=== PATIENT | female | born 1940 | race Caucasian/White ===

== ENCOUNTER 2018-06-03 19:58 | Inpatient (IN) | payer OTHER, BC ==
--- NOTE | 2018-06-03 20:35 | PDOC ---
History of Present Illness <NicholsViri - Last Filed: 06/04/18 03:34> - History of Present Illness Initial Comments: 06/03/18 20:11 78 yo F with h/o IBS, fibromyalgia, right femoral neck fracture s/p repair, who left flank pain. Patient reports worsening, sharp, shooting, left sided flank pain with radiation to left hip/groin beginning Wednesday (05-30-17), with no identifiable triggers or alleviators. Non exertional. Pain not relieved with duloxetine. Endorses increased severity x 1 day. Also endorses decreased urination x 1 day, and nausea w/out vomiting, now resolved. Normal appeitie, bowel habits. Patient denies N/V, F,C, CP, SOB, urinary complaints, constipation, BPR, hematuria, lightheadedness, weakness, sensory changes. PMHx: as noted above. Denies h/o abdominal surgery ROS: as noted Allergies: NKDA <Chon Eugene - Last Filed: 06/04/18 05:11> - General Chief Complaint: Pain, Acute Stated Complaint: Pain, Acute Time Seen by Provider: 06/03/18 20:05 Past History <SimoneViri - Last Filed: 06/04/18 03:34> - Past Medical History COPD: No Seizures: Yes (PSYCHOMOTOR EPILEPSY) - Suicide/Smoking/Psychosocial Hx Smoking History: Never smoked Hx Alcohol Use: No Substance Use Type: None Hx Substance Use Treatment: No <Chon Eugene - Last Filed: 06/04/18 05:11> - Past Medical History Allergies/Adverse Reactions: Allergies Allergy/AdvReac Type Severity Reaction Status Date / Time No Known Allergies Allergy Verified 05/17/14 18:45 Home Medications: Ambulatory Orders Duloxetine HCl [Cymbalta -] 30 mg PO HS 05/17/14 Phenytoin Na Extended [Dilantin -] 200 mg PO HS 05/17/14 Phenytoin Sodium Extended 100 mg PO AM 05/17/14 Review of Systems - Review of Systems Comments:: 06/03/18 20:12 GENERAL/CONSTITUTIONAL: No fever or chills. No weakness. HEAD, EYES, EARS, NOSE AND THROAT: No change in vision. No ear pain or discharge. No sore throat. CARDIOVASCULAR: No chest pain or shortness of breath RESPIRATORY: No cough, wheezing, or hemoptysis. GASTROINTESTINAL: No nausea, vomiting, diarrhea or constipation. GENITOURINARY: No dysuria, frequency, or change in urination. MUSCULOSKELETAL: No joint or muscle swelling or pain. No neck or back pain. SKIN: No rash NEUROLOGIC: No headache, vertigo, loss of consciousness, or change in strength/ sensation. ENDOCRINE: No increased thirst. No abnormal weight change HEMATOLOGIC/LYMPHATIC: No anemia, easy bleeding, or history of blood clots. ALLERGIC/IMMUNOLOGIC: No hives or skin allergy. <Rich Eugeneson - Last Filed: 06/04/18 05:11> *Physical Exam - Vital Signs Last Vital Signs Temp Pulse Resp BP Pulse Ox 98.5 F 94 H 18 137/77 97 06/03/18 20:07 06/03/18 20:07 06/03/18 20:07 06/03/18 20:07 06/03/18 20:07 <NicholsViri - Last Filed: 06/04/18 03:34> - Vital Signs Last Vital Signs Temp Pulse Resp BP Pulse Ox 98.5 F 94 H 18 137/77 97 06/03/18 20:07 06/03/18 20:07 06/03/18 20:07 06/03/18 20:07 06/03/18 20:07 - Physical Exam Comments: 06/03/18 20:12 GENERAL: Awake, alert, and fully oriented, in no acute distress HEAD: No signs of trauma, normocephalic, atraumatic EYES: PERRLA, EOMI, sclera clear, hearing grossly normal, nares patent, oropharynx clear withoutexudates. Moist mucosa NECK: Normal ROM, supple, no lymphadenopathy, JVD, or masses LUNGS: No distress, speaks full sentences, clear to auscultation bilaterally HEART: Regular rate and rhythm, normal S1 and S2, no murmurs, rubs or gallops, peripheral pulses normal and equal bilaterally. ABDOMEN: + Left flank ttp. Soft, NDS, nontender, normoactive bowel sounds. No guarding, no rebound. No masses EXTREMITIES : Normal inspection, Normal range of motion, no edema. No clubbing or cyanosis. NEUROLOGICAL: Cranial nerves II through XII grossly intact. Normal speech, no focal sensorimotor deficits SKIN: Warm, Dry, normal turgor, no rashes or lesions noted <Chon Eugene - Last Filed: 06/04/18 05:11> Moderate Sedation - Procedure Monitoring Vital Signs: Procedure Monitoring Vital Signs Temperature 98.5 F 06/03/18 20:07 Pulse Rate 94 H 06/03/18 20:07 Respiratory Rate 18 06/03/18 20:07 Blood Pressure 137/77 06/03/18 20:07 O2 Sat by Pulse Oximetry (%) 97 06/03/18 20:07 <Viri Nichols - Last Filed: 06/04/18 03:34> - Procedure Monitoring Vital Signs: Procedure Monitoring Vital Signs Temperature 98.5 F 06/03/18 20:07 Pulse Rate 94 H 06/03/18 20:07 Respiratory Rate 18 06/03/18 20:07 Blood Pressure 137/77 06/03/18 20:07 O2 Sat by Pulse Oximetry (%) 97 06/03/18 20:07 <Chon Eugene - Last Filed: 06/04/18 05:11> ED Treatment Course - LABORATORY CBC & Chemistry Diagram: 06/03/18 20:52 06/03/18 20:52 - ADDITIONAL ORDERS Additional order review: Laboratory Results 06/03/18 06/03/18 23:51 20:52 Sodium 143 Potassium 3.5 Chloride 104 Carbon Dioxide 28 Anion Gap 11 BUN 19 H Creatinine 0.7 Creat Clearance w eGFR > 60 Random Glucose 89 Calcium 8.6 Total Bilirubin 0.4 AST 15 ALT 20 Alkaline Phosphatase 84 Total Protein 6.5 Albumin 3.6 Urine Color Red Urine Appearance Turbid Urine pH 6.0 Ur Specific [place] 1.019 Urine Protein 2+ H Urine Glucose (UA) 1+ H Urine Ketones Trace H Urine Blood 2+ H Urine Nitrite Negative Urine Bilirubin Negative Urine Urobilinogen Negative Ur Leukocyte Esterase Negative Urine WBC (Auto) None Urine RBC (Auto) 3893 Urine Mucus Few 06/03/18 20:52 RBC 3.70 MCV 94.4 MCHC 34.5 RDW 13.9 D MPV 8.8 Neutrophils % 79.2 D Lymphocytes % 12.0 D Monocytes % 7.9 Eosinophils % 0.5 D Basophils % 0.4 - Medications Given in the ED: ED Medications Discontinued Medications Generic Name Dose Route Start Last Admin Trade Name Freq PRN Reason Stop Dose Admin Sodium Chloride 1,000 mls @ 1,000 mls/hr 06/03/18 20:40 06/03/18 20:51 Normal Saline - IV 06/03/18 21:39 1,000 mls/hr ASDIR STA Administration Sodium Chloride 1,000 mls @ 1,000 mls/hr 06/03/18 23:16 06/03/18 23:25 Normal Saline - IV 06/04/18 00:15 1,000 mls/hr ASDIR STA Administration Ketorolac Tromethamine 15 mg 06/03/18 23:11 06/03/18 23:26 Toradol Injection - IVPUSH 06/03/18 23:12 Not Given ONCE ONE Ondansetron HCl 4 mg 06/03/18 20:40 06/03/18 20:51 Zofran Injection IVPUSH 06/03/18 20:41 Not Given ONCE ONE Ondansetron HCl 4 mg 06/04/18 00:05 06/04/18 00:36 Zofran Injection IVPB 06/04/18 00:06 4 mg ONCE ONE Administration <Viri Nichols - Last Filed: 06/04/18 03:34> - LABORATORY CBC & Chemistry Diagram: 06/03/18 20:52 06/03/18 20:52 <Chon Eugene - Last Filed: 06/04/18 05:11> Medical Decision Making - Medical Decision Making 06/04/18 03:34 Patient Name: ALVIN FORTE THIS IS A PRELIMINARY REPORT FROM [facility] DATE OF SERVICE: 2018-06-04 02:18:03 IMAGES: [id number] EXAM: CT abdomen and pelvis without contrast HISTORY: Left flank pain COMPARISON: None. FINDINGS: Lung bases are clear. The heart is borderline enlarged. There is mild left hydronephrosis secondary to a 9 mm proximal ureteral stone, at or just beyond the UPJ. High density in within the left collecting system suspect represent blood. Additional 8 mm stone is noted in the lower pole of the left kidney. Normal unenhanced liver, gallbladder, pancreas, spleen, adrenal glands and right kidney. No bowel obstruction or obvious bowel inflammation. There is no aortic aneurysm. There is no significant retroperitoneal lymphadenopathy. There is minimal ascites of uncertain etiology. Appendix not visualized. The uterus and adnexal structures are normal. Urinary bladder is unremarkable. No discrete pelvic lymphadenopathy is identified.Multiple collateral lumbar vertebral fractures are likely due to osteoporosis. No definite acute fractures. IMPRESSION: Mild to left hydronephrosis secondary to a 9 mm proximal ureteral stone, at or just beyond the UPJ with blood in the proximal ureter and central collecting system.. 8 mm stone in the lower pole the left kidney. Minimal ascites of uncertain cause. Multiple thoracic lumbar vertebral fractures, all likely old and suspected to be due to osteoporosis <Viri Nichols - Last Filed: 06/04/18 03:34> - Medical Decision Making 06/03/18 20:12 78 yo F with h/o IBS, fibromyalgia, right femoral neck fracture s/p repair, who left worsening, sharp, shooting, left sided flank pain with radiation to left hip/groin beginning Wednesday (05-30-17). + Decreased urination. + Left flank ttp. Vitals wnl, AF, A&Ox3. Denies F/C, CP, SOB, abdominal pain, hematuria, BPR., lightheadedness. Will consider nephrolithaisis/obstructive uropathy, pyelonephirtis, cystitis. No evidence AAA, Ao dissection, mesenteric ischemia. Provide analgesia and reassess. Ed Course: 06/03/18 20:13 CBC, CMP, UA, UCx NS, Zofran CBC, CMP: Unremarkable gross hematuria on physical exam Renal U/S: Moderate Left hydronephrosis. 06/04/18 00:05 CT SPIRAL 06/04/18 03:38 9 mm Proximal stone at UPJ, decreased urination 06/04/18 05:03 Pt. endorsed to medicine. Admitted to Dr. Isaacs. <Chon Eugene - Last Filed: 06/04/18 05:11> *DC/Admit/Observation/Transfer - Discharge Dispostion Decision to Admit order: Yes <Viri Nichols - Last Filed: 06/04/18 03:34> - Discharge Dispostion Decision to Admit order: Yes - Attestations Physician Attestion: 06/03/18 20:12 I attest to the information provided in this note. <Chon Eugene - Last Filed: 06/04/18 05:11> Diagnosis at time of Disposition: Pain, Acute left flank pain, Ureteropelvic junction (UPJ) obstruction, left, Ureteral stone, Hydronephrosis - Discharge Dispostion Condition at time of disposition: Guarded - Referrals Referrals: Keegan Rodriguez MD [Primary Care Provider] - - Patient Instructions Printed Discharge Instructions: DI for Flank Pain Additional Instructions: Please return to the emergency department with any new or worsening symptoms or concerns. Please follow up with your primary care physician within 72 hours.
[2018-06-03] MEDS ORDERED: SODIUM CHLORIDE 1,000 ML IV STA ×2 (20:40→23:16)
[2018-06-03] MEDS ORDERED: ONDANSETRON 4 MG/2 ML VIAL IVPUSH ONE (20:40)
[2018-06-03] MEDS ORDERED: ONDANSETRON 4 MG/2 ML VIAL ONE (20:43)
[2018-06-03 20:58] LABS: BASO % 0.4 % (0-2.0); EOS % 0.5 % (0-4.5); HEMOGLOBIN 12.1 GM/dL (10.7-15.3); MCH 32.6 pg (25.7-33.7); MCHC 34.5 g/dl (32.0-36.0); MEAN CELL VOLUME 94.4 fl (80-96); MEAN PLT VOLUME 8.8 fl (7.5-11.1); MONO % 7.9 % (3.8-10.2); NEUT % 79.2 % (42.8-82.8); PLATELET COUNT 145 K/MM3 (134-434); RDW 13.9 % (11.6-15.6); WHITE BLOOD COUNT 9.5 K/mm3 (4.0-10.0)
[2018-06-03 21:21] LABS: ALBUMIN 3.6 g/dl (3.4-5.0); ALK PHOS 84 U/L (45-117); ANION GAP 11 MMOL/L (8-16); BILIRUBIN,TOTAL 0.4 mg/dL (0.2-1); BLOOD UREA NITROGEN 19 mg/dL (7-18); CALCIUM 8.6 mg/dL (8.5-10.1); CHLORIDE 104 mmol/L (98-107); CO2 28 mmol/L (21-32); CREATININE 0.7 mg/dL (0.55-1.3); GLUCOSE,RANDOM 89 mg/dL (74-106); POTASSIUM 3.5 mmol/L (3.5-5.1); SGOT/AST 15 U/L (15-37); SGPT/ALT 20 U/L (13-61); SODIUM 143 mmol/L (136-145); TOT PROT 6.5 g/dl (6.4-8.2)
[2018-06-03] MEDS ORDERED: KETOROLAC TROMETHAMINE 15 MG/ML VIAL IVPUSH ONE (23:11)
--- NOTE | 2018-06-03 23:12 | PDOC ---
Attending Attestation - Resident Resident Name: JabierRichChon - ED Attending Attestation I have performed the following: I have examined & evaluated the patient, The case was reviewed & discussed with the resident, I agree w/resident's findings & plan - [facility] HPI: 06/04/18 00:17 78YOF, with a significant past medical history of IBS, fibromyalgia, right femoral neck fracture (s/p repair), who presents to the emergency department with, 1 week of left flank pain radiating to the groin. Patient notes today she began to have decreased urinary output and nausea without vomiting today, prompting her arrival. She denies recent fevers, chills, headache or dizziness. She denies recent vomit , diarrhea or constipation. She denies recent dysuria or hematuria. She denies recent chest pain or shortness of breath. No sick contacts or travel. No new changes in medications. Allergies: None Past Medical History: IBS, fibromyalgia, right femoral neck fracture (s/p repair ) Social history: Lives with family. No tobacco, ETOH or drug use. Surgical history: right femoral neck repair - Physicial Exam PE: 06/04/18 00:16 NAD, well appearing, frail appearing. PERRL, EOMI, very dry mucus membranes/ smelly breath, nl conjunctiva, anicteric; neck supple. lungs clear, RRR, abdomen soft diffusely tender, Left CVAT. NOVA x4, no focal neuro deficits. No peripheral edema. normal color for ethnicity, WWP. - Medical Decision Making 06/03/18 23:13 DDx abdominal pain: Renal colic, ureteral stone, abdominal mass, bladder ca, RCC. biliary colic, metabolic/electrolyte derangements. GERD, PUD, esophageal spasm, pancreatitis, hepatitis, IBS flare. constipation, colitis, gastroenteritis, UTI, pyelonephritis, hemorrhagic cystitis. hernia, appendicitis, diverticulitis See HPI for details Vital signs reviewed, wnl. Prior notes reviewed, including admissions, discharges and consultations. laboratory results and imaging reviewed, basic labs and lytes wnl, notable for normal Cr, lipase/lfts. UA_grossly bloody, consistent with bedside passage of hematuria; no infection ED course: while in the ED, passed jose hematuria, continues to have flank pain. renal colic/ureteral stone high on differential Bedside renal US with resident mild left hydro on color flow, clots noted in bladder, no ff. normal right kidney on color flow. CT marie to r/o stone/intra abdominal pathology. pain controlled for now, declined analgesia; IVF and zofran given. s/o pending CT scan and results, reeval, suspicious for mass vs obstructed stone. 06/04/18 02:03 06/06/18 12:18 06/06/18 12:19 Procedures - Bedside Ultrasound Remarks: 06/06/18 12:18 POCUS renal study, indication: flank pain, hematuria. views: bilateral kidneys, bladder, transverse and long view. findings: mild left hydronephrosis. blood clots in bladder. interpretation: left hydronephrosis.
[2018-06-03] MEDS ORDERED: KETOROLAC TROMETHAMINE 15 MG/ML VIAL ONE (23:20)
[2018-06-04] MEDS ORDERED: ONDANSETRON 4 MG/2 ML VIAL IVPB ONE (00:05)
[2018-06-04 00:06] LABS: URINE APPEARANCE TURBID; URINE BILIRUBIN NEGATIVE (<2.0 mg/dL); URINE COLOR RED; URINE GLUCOSE (UA) 1+ (NEGATIVE); URINE KETONE TRACE (NEGATIVE); URINE LEUK ESTERASE NEGATIVE (NEGATIVE); URINE NITRITE NEGATIVE (NEGATIVE); URINE PROTEIN 2+ (NEGATIVE); URINE UROBILINOGEN NEGATIVE mg/dL (0.2-1.0)
[2018-06-04] MEDS ORDERED: ONDANSETRON 4 MG/2 ML VIAL ONE (00:32)
[2018-06-04 00:55] LABS: URINE MUCUS FEW
--- NOTE | 2018-06-04 05:23 | PN ---
Teaching Attending Note Name of Resident: Jennifer Hill ATTENDING PHYSICIAN STATEMENT I saw and evaluated the patient. I reviewed the resident's note and discussed the case with the resident. I agree with the resident's findings and plan as documented. SUBJECTIVE: OBJECTIVE: ASSESSMENT AND PLAN: 78 y/o female presented for left sided flank pain, associated with dysuria - patient was noted to have a 9mm stone with hydronephrosis admitted for the management of nephrolithiaisis with hydronephrosis plan: pain management consult urology c/w home medication fluid hydration
[2018-06-04] MEDS ORDERED: SODIUM CHLORIDE 1,000 ML IV SCH (05:30)
--- NOTE | 2018-06-04 05:43 | HP ---
CHIEF COMPLAINT:left flank pain PCP:Dr. Rodriguez HISTORY OF PRESENT ILLNESS: Patient is a 78 year old female with past medical history of IBS and fibromyalgia, presented with a 3-day history of intermitted LLQ and left flank pain. Patient reported pain started 3 days ago at the suprapubic and LLQ area. It was constant, 7/10, radiating to the left flank, and would last a few hours. No medications taken, no alleviating/aggravating factors. This was accompanied by hematuria, but no dysuria or frequency. Last night, patient experienced worse pain in the left flank area accompanied by nausea, and decided to go to the ED. Patient denies fever, chills, headache, vomiting, chest pain, SOB, palpitations, diarrhea. ER course was notable for: (1)spiral CT - 9mm UPJ stone, hydronephrosis, left kidney (2)IV Toradol for pain, IVF (3)UA: red, blood 2+, RBC 3K Recent Travel:denies any recent travel PAST MEDICAL HISTORY: IBS Fibromyalgia Right femoral neck fracture PAST SURGICAL HISTORY: noncontributory Social History: Smoking:denies Alcohol:denies Drugs: denies Family History: Allergies No Known Allergies Allergy (Verified 05/17/14 18:45) HOME MEDICATIONS: Home Medications Medication Instructions Recorded Duloxetine HCl [Cymbalta -] 30 mg PO HS 05/17/14 Phenytoin Na Extended [Dilantin -] 200 mg PO HS 05/17/14 Phenytoin Sodium Extended 100 mg PO AM 05/17/14 REVIEW OF SYSTEMS CONSTITUTIONAL: Absent: fever, chills, diaphoresis, generalized weakness, malaise, loss of appetite, weight change HEENT: Absent: rhinorrhea, nasal congestion, throat pain, throat swelling, difficulty swallowing, mouth swelling, ear pain, eye pain, visual changes CARDIOVASCULAR: Absent: chest pain, syncope, palpitations, irregular heart rate, lightheadedness , peripheral edema RESPIRATORY: Absent: cough, shortness of breath, dyspnea with exertion, orthopnea, wheezing, stridor, hemoptysis GASTROINTESTINAL: Absent: LLQ abdominal pain, abdominal distension, nausea, vomiting, diarrhea, constipation, melena, hematochezia GENITOURINARY: Absent: dysuria, frequency, urgency, hesitancy, hematuria, left flank pain, genital pain MUSCULOSKELETAL: Absent: myalgia, arthralgia, joint swelling, back pain, neck pain SKIN: Absent: rash, itching, pallor HEMATOLOGIC/IMMUNOLOGIC: Absent: easy bleeding, easy bruising, lymphadenopathy, frequent infections ENDOCRINE: Absent: unexplained weight gain, unexplained weight loss, heat intolerance, cold intolerance NEUROLOGIC: Absent: headache, focal weakness or paresthesias, dizziness, unsteady gait, seizure, mental status changes, bladder or bowel incontinence PSYCHIATRIC: Absent: anxiety, depression, suicidal or homicidal ideation, hallucinations. PHYSICAL EXAMINATION Vital Signs - 24 hr 06/03/18 20:07 Temperature 98.5 F Pulse Rate 94 H Respiratory 18 Rate Blood Pressure 137/77 O2 Sat by Pulse 97 Oximetry (%) GENERAL: Awake, alert, and fully oriented, in no acute distress. HEAD: Normal with no signs of trauma. EYES: PERRLA, EOMI, sclera anicteric, conjunctiva clear. EARS, NOSE, THROAT: Nares patent, oropharynx clear without exudates. Moist mucous membranes. LUNGS: Breath sounds equal, clear to auscultation bilaterally. HEART: Regular rate and rhythm, normal S1 and S2 without murmur, rub or gallop. ABDOMEN: Soft, nontender, not distended, normoactive bowel sounds. +Left CVA tenderness UPPER EXTREMITIES: 2+ pulses, warm, well-perfused. No peripheral edema. LOWER EXTREMITIES: 2+ pulses, warm, well-perfused. No peripheral edema. NEUROLOGICAL: Cranial nerves II-XII intact. Normal speech. Gait not observed. PSYCHIATRIC: Cooperative. Good eye contact. Appropriate mood and affect. SKIN: Warm, dry, normal turgor, no rashes or lesions noted. Laboratory Results - last 24 hr 06/03/18 06/03/18 06/03/18 20:52 20:52 23:51 WBC 9.5 RBC 3.70 Hgb 12.1 Hct 35.0 D MCV 94.4 MCH 32.6 MCHC 34.5 RDW 13.9 D Plt Count 145 MPV 8.8 Absolute Neuts (auto) 7.6 Neutrophils % 79.2 D Lymphocytes % 12.0 D Monocytes % 7.9 Eosinophils % 0.5 D Basophils % 0.4 Nucleated RBC % 0 Sodium 143 Potassium 3.5 Chloride 104 Carbon Dioxide 28 Anion Gap 11 BUN 19 H Creatinine 0.7 Creat Clearance w eGFR > 60 Random Glucose 89 Calcium 8.6 Total Bilirubin 0.4 AST 15 ALT 20 Alkaline Phosphatase 84 Total Protein 6.5 Albumin 3.6 Urine Color Red Urine Appearance Turbid Urine pH 6.0 Ur Specific [place] 1.019 Urine Protein 2+ H Urine Glucose (UA) 1+ H Urine Ketones Trace H Urine Blood 2+ H Urine Nitrite Negative Urine Bilirubin Negative Urine Urobilinogen Negative Ur Leukocyte Esterase Negative Urine WBC (Auto) None Urine RBC (Auto) 3893 Urine Mucus Few ASSESSMENT/PLAN: Patient is a 78 year old female with past medical history of IBS and fibromyalgia, presented with a 3-day history of intermitted LLQ and left flank pain. #Left flank pain likely 2/2 nephrolithiasis -spiral CT done -- awaiting final read -UA: grossly red, Blood2+, RBC 3893 -Urology (Dr. Pratt) consulted. -Toradol 15mg PRN for pain #Fibromyalgia -Continue home Dilantin #FEN -IV NS @ 42ml/hr -Electrolytes wnl, routine bmp monitoring -NPO for now #Prophylaxis -SCDs #Disposition -obs Visit type - Emergency Visit Emergency Visit: Yes ED Registration Date: 06/04/18 Care time: The patient presented to the Emergency Department on the above date and was hospitalized for further evaluation of their emergent condition. - New Patient This patient is new to me today: Yes Date on this admission: 06/04/18 - Critical Care Critical Care patient: No
[2018-06-04] MEDS ORDERED: KETOROLAC TROMETHAMINE 15 MG/ML VIAL ONE (06:16)
[2018-06-04] MEDS: KETOROLAC TROMETHAMINE 15 MG/ML VIAL IVPUSH PRN (06:33)
[2018-06-04 06:54] LABS: BASO % 0.6 % (0-2.0); EOS % 1.8 % (0-4.5); HEMATOCRIT 30.7 % (32.4-45.2); HEMOGLOBIN 10.6 GM/dL (10.7-15.3); LYMPH % 18.8 % (8-40); MCH 32.7 pg (25.7-33.7); MCHC 34.3 g/dl (32.0-36.0); MEAN CELL VOLUME 95.3 fl (80-96); MEAN PLT VOLUME 8.4 fl (7.5-11.1); NEUT % 70.8 % (42.8-82.8); PLATELET COUNT 130 K/MM3 (134-434); RBC 3.23 M/mm3 (3.60-5.2); RDW 13.8 % (11.6-15.6); WHITE BLOOD COUNT 6.9 K/mm3 (4.0-10.0)
[2018-06-04 07:42] LABS: ANION GAP 9 MMOL/L (8-16); BLOOD UREA NITROGEN 17 mg/dL (7-18); CALCIUM 7.5 mg/dL (8.5-10.1); CHLORIDE 112 mmol/L (98-107); CO2 25 mmol/L (21-32); CREATININE 0.5 mg/dL (0.55-1.3); GLUCOSE,RANDOM 62 mg/dL (74-106); MAGNESIUM 1.9 mg/dL (1.8-2.4); PHOSPHOROUS 2.5 mg/dL (2.5-4.9); POTASSIUM 4.1 mmol/L (3.5-5.1); SODIUM 147 mmol/L (136-145)
--- NOTE | 2018-06-04 09:56 | CON.GU ---
Consult Consult Specialty:: urology Reason for Consultation:: left proximal ureteral stone - History of Present Illness Chief Complaint: left ureteral stone History of Present Illness: Patient is a 78 year old female with history of left renal colic with nausea. Patient denies gross hematuria, fever, or chills. Patient is in severe colic with pain management improving her symptoms. Patient also does not have an appetite. 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 Gastrointestinal: Yes: GERD Rheumatology: Yes: Fibromyalgia - Alcohol/Substance Use Hx Alcohol Use: No - Smoking History Smoking history: Never smoked Home Medications - Allergies Allergies/Adverse Reactions: Allergies Allergy/AdvReac Type Severity Reaction Status Date / Time No Known Allergies Allergy Verified 05/17/14 18:45 - Home Medications Home Medications: Ambulatory Orders Duloxetine HCl [Cymbalta -] 30 mg PO DAILY 05/17/14 Phenytoin Na Extended [Dilantin -] 100 mg PO BID 06/04/18 Family Disease History - Family Disease History Family Disease History: Heart Disease: Father ([place] in his 60's) Physical Exam- Vital Signs: Vital Signs Temperature 99.1 F 06/04/18 06:25 Pulse Rate 79 06/04/18 06:25 Respiratory Rate 18 06/04/18 06:25 Blood Pressure 141/98 06/04/18 06:25 O2 Sat by Pulse Oximetry (%) 98 06/04/18 06:25 Constitutional: Yes: No Distress, Calm, Mild Distress Eyes: Yes: WNL, Conjunctiva Clear, EOM Intact HENT: Yes: WNL, Atraumatic, Normocephalic Neck: Yes: WNL, Supple, Trachea Midline Cardiovascular: Yes: WNL Respiratory: Yes: WNL Gastrointestinal: Yes: Soft, Hypoactive Bowel Sounds Renal/: Yes: CVA Tenderness - Left Kidneys: Yes: FLank Pain Right Pelvis: Yes: WNL, Bladder Non Palpable External Genitalia: Yes: WNL Labs: CBC, BMP 06/04/18 06:26 06/04/18 06:26 Imaging - Results Cat Scan: Image Reviewed Assessment/Plan imp left proximal ureteral stone with hydro renal colic plan pain management iv hydration will schedule for Wednesday for cystoscopy and left ureteroscopic stone basketing patient is afebril with nl WBC and creatinine; will re-evaluate if situation changes 25 minutes spent with patient
[2018-06-04] MEDS ORDERED: PHENYTOIN NA EXTENDED 100 MG CAPSULE (FP) PO SCH ×3 (10:00→22:00)
[2018-06-04] MEDS: DULoxetine HCL 30 MG CAPSULE.DR (FP) PO SCH (10:47)
[2018-06-04 10:51] VITALS: BMI 16.0
[2018-06-04] MEDS: PHENYTOIN NA EXTENDED 100 MG CAPSULE (FP) PO SCH ×2 (10:56→21:31)
[2018-06-04] MEDS: SODIUM CHLORIDE 1,000 ML IV SCH (15:54)
[2018-06-04] MEDS ORDERED: DULoxetine HCL 30 MG CAPSULE.DR (FP) PO SCH (22:00)
[2018-06-05] MEDS: KETOROLAC TROMETHAMINE 15 MG/ML VIAL IVPUSH PRN (02:00)
[2018-06-05] MEDS ORDERED: INSULIN (NOVOLOG) ASPART 100 UNITS/ML 10ML VIAL ONE (06:15)
[2018-06-05] MEDS ORDERED: PT OWN MED DRAWER 7, Y5N ONE ×2 (09:16)
[2018-06-05] MEDS: PHENYTOIN NA EXTENDED 100 MG CAPSULE (FP) PO SCH ×2 (09:19→21:49)
[2018-06-05] MEDS: DULoxetine HCL 30 MG CAPSULE.DR (FP) PO SCH (09:19)
--- NOTE | 2018-06-05 10:00 | PN ---
Progress Note, Physician History of Present Illness: Patient is a 78 year old female with past medical history of IBS and fibromyalgia, presented with a 3-day history of intermitted LLQ and left flank pain. - Current Medication List Current Medications: Active Medications Duloxetine HCl (Cymbalta -) 30 mg PO DAILY [facility] Last Admin: 06/05/18 09:19 Dose: 30 mg Sodium Chloride (Normal Saline -) 1,000 mls @ 60 mls/hr IV ASDIR [facility] Last Admin: 06/04/18 15:54 Dose: 60 mls/hr Levofloxacin (Levaquin 500 Mg Premixed Ivpb -) 500 mg in 100 mls @ 100 mls/hr IVPB DAILY [facility] Last Admin: 06/05/18 09:19 Dose: 100 mls/hr Ketorolac Tromethamine (Toradol Injection -) 15 mg IVPUSH Q6H PRN PRN Reason: PAIN LEVEL 7 - 10 Stop: 06/09/18 05:08 Last Admin: 06/05/18 02:00 Dose: 15 mg Phenytoin Sodium (Dilantin -) 100 mg PO BID [facility] Last Admin: 06/05/18 09:19 Dose: 100 mg - Objective Vital Signs: Vital Signs Temperature 99.6 F 06/05/18 05:42 Pulse Rate 73 06/05/18 05:42 Respiratory Rate 18 06/05/18 06:00 Blood Pressure 135/79 06/05/18 05:42 O2 Sat by Pulse Oximetry (%) 99 06/05/18 06:00 Constitutional: Yes: Well Nourished, No Distress, Calm Eyes: Yes: WNL, Conjunctiva Clear, EOM Intact HENT: Yes: WNL, Atraumatic, Normocephalic Neck: Yes: WNL, Supple, Trachea Midline Cardiovascular: Yes: WNL, Regular Rate and Rhythm, S1, S2 Respiratory: Yes: WNL, Regular, CTA Bilaterally Gastrointestinal: Yes: WNL, Normal Bowel Sounds Extremities: Yes: WNL Edema: No Neurological: Yes: WNL, Alert, Oriented ...Motor Strength: WNL Psychiatric: Yes: WNL Labs: CBC, BMP 06/04/18 06:26 06/04/18 06:26 Problem List - Problems (1) Acute left flank pain Code(s): R10.9 - UNSPECIFIED ABDOMINAL PAIN (2) Hydronephrosis Code(s): N13.30 - UNSPECIFIED HYDRONEPHROSIS Assessment/Plan #Left flank pain likely 2/2 nephrolithiasis -spiral CT done -- awaiting final read -UA: grossly red, Blood2+, RBC 3893 -Urology (Dr. Pratt) consulted. -Toradol 15mg PRN for pain #Fibromyalgia -Continue home Dilantin #FEN -IV NS @ 42ml/hr -Electrolytes wnl, routine bmp monitoring -NPO for now #Prophylaxis -SCDs #Disposition -obs
[2018-06-05] MEDS: SODIUM CHLORIDE 1,000 ML IV SCH (21:47)
--- NOTE | 2018-06-06 06:49 | RAPID ---
Physical Examination Vital Signs: Vital Signs Temperature 98.4 F 06/06/18 05:46 Pulse Rate 72 06/06/18 05:46 Respiratory Rate 20 06/06/18 05:46 Blood Pressure 143/78 06/06/18 05:46 O2 Sat by Pulse Oximetry (%) 96 06/06/18 02:00 Labs: CBC, BMP 06/04/18 06:26 06/04/18 06:26 Rapid Response - Rapid Response Assessment: rapid response was called at 6:40am- according to nurse patient wasnt acting herself and seemed confused. vitals: BP 159/106 HR 110 BGM 89 SPO2 100 percent exam: gen: NAD LUNGS CTA B/L; no rales, rhonchi or wheezing heart: tachycardic, regular rhythm abdomen: soft; NT ND neuro: AAO X1; CN 2-12 intact plan: EKG CBC BMP metoprolol 25 given
[2018-06-06] MEDS ORDERED: METOPROLOL TARTRATE 25 MG TABLET (FP) PO ONE (06:54)
[2018-06-06 08:01] LABS: BASO % 0.6 % (0-2.0); EOS % 3.9 % (0-4.5); HEMATOCRIT 34.5 % (32.4-45.2); LYMPH % 46.7 % (8-40); MCH 32.6 pg (25.7-33.7); MCHC 34.8 g/dl (32.0-36.0); MEAN CELL VOLUME 93.5 fl (80-96); MEAN PLT VOLUME 8.6 fl (7.5-11.1); MONO % 7.6 % (3.8-10.2); NEUT % 41.2 % (42.8-82.8); PLATELET COUNT 167 K/MM3 (134-434); RBC 3.69 M/mm3 (3.60-5.2); RDW 13.6 % (11.6-15.6); WHITE BLOOD COUNT 6.4 K/mm3 (4.0-10.0)
[2018-06-06 08:27] LABS: ANION GAP 6 MMOL/L (8-16); BLOOD UREA NITROGEN 10 mg/dL (7-18); CALCIUM 8.2 mg/dL (8.5-10.1); CHLORIDE 108 mmol/L (98-107); CO2 28 mmol/L (21-32); CREATININE 0.6 mg/dL (0.55-1.3); GLUCOSE,RANDOM 85 mg/dL (74-106); POTASSIUM 3.6 mmol/L (3.5-5.1); SODIUM 142 mmol/L (136-145)
[2018-06-06] MEDS: DULoxetine HCL 30 MG CAPSULE.DR (FP) PO SCH (09:16)
--- NOTE | 2018-06-06 09:16 | PN ---
Progress Note, Physician Chief Complaint: Comfortable awaiting procedure History of Present Illness: 78 year old female with past medical history of IBS and fibromyalgia, presented with a 3-day history of intermitted LLQ and left flank pain. Patient reported pain started 3 days ago at the suprapubic and LLQ area, spiral CT - 9mm UPJ stone, hydronephrosis, left kidney - Current Medication List Current Medications: Active Medications Duloxetine HCl (Cymbalta -) 30 mg PO DAILY [facility] Last Admin: 06/05/18 09:19 Dose: 30 mg Sodium Chloride (Normal Saline -) 1,000 mls @ 60 mls/hr IV ASDIR [facility] Last Admin: 06/05/18 21:47 Dose: 60 mls/hr Ketorolac Tromethamine (Toradol Injection -) 15 mg IVPUSH Q6H PRN PRN Reason: PAIN LEVEL 7 - 10 Stop: 06/09/18 05:08 Last Admin: 06/05/18 02:00 Dose: 15 mg Levofloxacin (Levaquin -) 500 mg PO DAILY@0600 [facility] Last Admin: 06/06/18 05:36 Dose: 500 mg Phenytoin Sodium (Dilantin -) 100 mg PO BID [facility] Last Admin: 06/05/18 21:49 Dose: 100 mg - Objective Vital Signs: Vital Signs Temperature 98.1 F 06/06/18 08:38 Pulse Rate 82 06/06/18 08:38 Respiratory Rate 20 06/06/18 08:38 Blood Pressure 143/86 06/06/18 08:38 O2 Sat by Pulse Oximetry (%) 96 06/06/18 02:00 Constitutional: Yes: Well Nourished, No Distress Eyes: Yes: Conjunctiva Clear, EOM Intact HENT: Yes: Atraumatic, Normocephalic Neck: Yes: Supple, Trachea Midline. No: Decreased ROM, Lymphadenopathy Cardiovascular: Yes: Regular Rate and Rhythm, S1, S2. No: JVD, Gallop, Murmur Respiratory: Yes: WNL, CTA Bilaterally Gastrointestinal: Yes: Soft. No: Normal Bowel Sounds Genitourinary: No: Bladder Distention, CVA Tenderness - Left, CVA Tenderness - Right Extremities: No: Amputation, Calf Tenderness Edema: No Peripheral Pulses: Left Doralis Pedis: 1+, Right Dorsalis Pedis: 1+ Neurological: Yes: Alert, Oriented ...Motor Strength: LUE, LLE, RUE, RLE Labs: CBC, BMP 06/06/18 07:00 06/06/18 06:30 Problem List - Problems (1) Acute left flank pain Assessment/Plan: Due to renal calculi awaiting cystoscopy F/U gU recommendations Code(s): R10.9 - UNSPECIFIED ABDOMINAL PAIN (2) Ureteropelvic junction (UPJ) obstruction, left Assessment/Plan: Pain is well controlled no fever elevated TWBC cont current management Code(s): N13.5 - CROSSING VESSEL AND STRICTURE OF URETER W/O HYDRONEPHROSIS (3) Epilepsy Assessment/Plan: Cont Dilantin F/U level in am Code(s): G40.909 - EPILEPSY, UNSP, NOT INTRACTABLE, WITHOUT STATUS EPILEPTICUS
[2018-06-06] MEDS: PHENYTOIN NA EXTENDED 100 MG CAPSULE (FP) PO SCH ×2 (09:17→23:19)
--- NOTE | 2018-06-06 11:07 | EKG ---
Test Reason : Blood Pressure : / mmHG Vent. Rate : 079 BPM Atrial Rate : 079 BPM P-R Int : 158 ms QRS Dur : 082 ms QT Int : 388 ms P-R-T Axes : 044 021 031 degrees QTc Int : 444 ms NORMAL SINUS RHYTHM NORMAL ECG WHEN COMPARED WITH ECG OF 17-MAY-2014 18:57, NO SIGNIFICANT CHANGE WAS FOUND Confirmed by XIMENA JADE MD ([id number]) on 06/06/2018 11:07:16 AM Referred By: Jaime WU Confirmed By:XIMENA JADE MD
[2018-06-06] MEDS: LACTATED RINGERS SOLUTION 1,000 ML IV SCH ×2 (13:21→14:27)
[2018-06-06] MEDS ORDERED: ONDANSETRON 4 MG/2 ML VIAL IVPB PRN (14:31)
[2018-06-06] MEDS ORDERED: MIDAZOLAM HCL 2 MG/2 ML SINGLE DOSE VIAL ONE (15:42)
[2018-06-06] MEDS: SODIUM CHLORIDE 1,000 ML IV SCH ×3 (16:11→18:07)
[2018-06-06] MEDS ORDERED: ePHEDrine SULFATE 50 MG/1 ML AMPULE ONE (16:18)
--- NOTE | 2018-06-06 16:55 | OP ---
Operative Note - Note: Operative Date: 06/06/18 Pre-Operative Diagnosis: left ureteral stone with hydronephrosis/colic Operation: cystoscopy/left retrograde pyelogram/left uretersoscopic stone manipulation and stent placement Findings: 7-8mm left upper ureteral stone with high grade proximal hydroureteronephrosis Post-Operative Diagnosis: Same as Pre-op Surgeon: Miguel Pratt Anesthesia: General Drains & Tubes with Location: left 11/05 ureteral stent
[2018-06-06] MEDS ORDERED: KETOROLAC TROMETHAMINE 15 MG/ML VIAL IVPUSH PRN (17:05)
[2018-06-06] MEDS: ACETAMINOPHEN 1000 MG/100 ML VIAL (NON FORMULARY) IVPB ONE (17:05)
[2018-06-06] MEDS ORDERED: LACTATED RINGERS SOLUTION 1,000 ML IV SCH (17:05)
--- NOTE | 2018-06-06 17:43 | OP ---
DATE OF OPERATION: 06/06/2018 PREOPERATIVE DIAGNOSIS: Left ureteral stone with hydronephrosis and renal colic. POSTOPERATIVE DIAGNOSIS: Proximal 7- to 8-mm left upper ureteral stone with high-grade proximal hydroureteronephrosis. PROCEDURE: Cystoscopy, left retrograde pyelogram, left ureteroscopic stone manipulation, stent placement. ATTENDING SURGEON: Javid Pratt MD ANESTHESIA: General. OPERATION: As follows, the patient was brought into the operating room and placed in a supine position on the operating room table. Antibiotics and anesthesia were administered. The patient was then placed in the dorsal lithotomy position and prepped and draped in the usual sterile manner. A retrograde pyelogram was performed which showed a filling defect in the left upper ureter. This filling defect was roughly 3 cm below the ureteropelvic junction. A wire was passed with mild difficulty. Ureteroscopy was then performed. A second wire was passed due to the significant narrowing of the ureter at this level. The stone was then noted and was disimpacted. With the stone traveling proximally into the kidney, a hematuric urine started draining. This led this surgeon to lose a significant amount of his optical field. It was decided to leave the patient with a stent in order to safely perform a second procedure at a later date. The ureteroscope was removed, and utilizing the Seldinger technique, a 6-Dutch 22-cm stent was placed. There were no complications noted. The patient tolerated the procedure very well. The disposition of the patient was to the recovery room. JAVID TORRES M.D. [id number]
[2018-06-06] MEDS: ONDANSETRON 4 MG/2 ML VIAL IVPB PRN (18:07)
[2018-06-07 08:10] LABS: BASO % 0.5 % (0-2.0); EOS % 2.3 % (0-4.5); HEMATOCRIT 31.6 % (32.4-45.2); HEMOGLOBIN 10.8 GM/dL (10.7-15.3); LYMPH % 27.4 % (8-40); MCH 32.2 pg (25.7-33.7); MCHC 34.4 g/dl (32.0-36.0); MEAN CELL VOLUME 93.8 fl (80-96); MEAN PLT VOLUME 8.5 fl (7.5-11.1); MONO % 8.2 % (3.8-10.2); NEUT % 61.6 % (42.8-82.8); PLATELET COUNT 164 K/MM3 (134-434); RBC 3.36 M/mm3 (3.60-5.2); RDW 13.3 % (11.6-15.6); WHITE BLOOD COUNT 5.6 K/mm3 (4.0-10.0)
[2018-06-07 08:18] LABS: ANION GAP 9 MMOL/L (8-16); BLOOD UREA NITROGEN 8 mg/dL (7-18); CHLORIDE 105 mmol/L (98-107); CO2 28 mmol/L (21-32); CREATININE 0.7 mg/dL (0.55-1.3); GLUCOSE,RANDOM 77 mg/dL (74-106); POTASSIUM 3.4 mmol/L (3.5-5.1); SODIUM 142 mmol/L (136-145)
[2018-06-07] MEDS ORDERED: POTASSIUM CHLORIDE TABS 20 MEQ TABLET.ER (FP) PO ONE (08:45)
[2018-06-07] MEDS: PHENYTOIN NA EXTENDED 100 MG CAPSULE (FP) PO SCH ×2 (09:06→22:47)
[2018-06-07] MEDS: DULoxetine HCL 30 MG CAPSULE.DR (FP) PO SCH (09:06)
[2018-06-07] MEDS: SODIUM CHLORIDE 1,000 ML IV SCH (10:18)
[2018-06-07] MEDS ORDERED: PHENYTOIN SODIUM 100 MG/2 ML VIAL IVPB ONE (10:35)
[2018-06-07] MEDS: DEXTROSE 5%-WATER - 1,000 ML IV SCH (13:33)
--- NOTE | 2018-06-07 15:26 | PN ---
Teaching Attending Note Name of Resident: Jennifer Hill ATTENDING PHYSICIAN STATEMENT I saw and evaluated the patient. I reviewed the resident's note and discussed the case with the resident. I agree with the resident's findings and plan as documented. 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 No: Decreased ROM, Lymphadenopathy Cardiovascular: Yes: Regular Rate and Rhythm, S1, S2. No: JVD, Gallop, Murmur Respiratory: Yes: WNL, CTA Bilaterally Gastrointestinal: Yes: Soft. No: Normal Bowel Sounds Genitourinary: No: Bladder Distention, CVA Tenderness - Left, CVA Tenderness - Right Extremities: No: Amputation, Calf Tenderness Edema: No Peripheral Pulses: Left Doralis Pedis: 1+, Right Dorsalis Pedis: 1+ Neurological: AOX3 non focal Labs: Dilantin 3.2 ASSESSMENT AND PLAN:78 yrs old with Fibromyelgia and psychmotor epilepsy admitted with Left Renal calculi with obstructive uropathy s/p Stent placement. Plan; Left Renal Locic; underwent cystoscopy and stent placement F/U recommondations. Epilepsy; Sub therpeutic Dilantin, load Dilatin F/U Dilantin level observe for breakthrough seizures D5 based hydration once patient is fsating. Patient looks confused F/U Neurology recommondation and CT head. Problem List - Problems (1) Acute left flank pain Assessment/Plan: Due to renal calculi awaiting cystoscopy F/U gU recommendations Code(s): R10.9 - UNSPECIFIED ABDOMINAL PAIN (2) Ureteropelvic junction (UPJ) obstruction, left Assessment/Plan: Pain is well controlled no fever elevated TWBC cont current management Code(s): N13.5 - CROSSING VESSEL AND STRICTURE OF URETER W/O HYDRONEPHROSIS (3) Epilepsy Assessment/Plan: Sub therapeutic dilantin, loaded f/u dilantin level. Code(s): G40.909 - EPILEPSY, UNSP, NOT INTRACTABLE, WITHOUT STATUS EPILEPTICUS
--- NOTE | 2018-06-07 15:38 | PN ---
Physical Exam: SUBJECTIVE: Patient seen and examined at bedside this morning. No acute events overnight. Patient has no new complaints. In the afternoon, paged by nurse, reporting patient seems to be confused and reporting dizziness. Upon seeing the patient, she seems to be aware of her surroundings, oriented x3 and reporting of dizziness and nausea after sitting on a chair and transferred to bed. OBJECTIVE: Vital Signs Period Temp Pulse Resp BP Sys/Patel Pulse Ox Last 24 Hr 97.8 F-98.9 F 87-120 16-20 120-155/53-98 97-99 GENERAL: Awake, alert, and fully oriented, in no acute distress. HEAD: Normal with no signs of trauma. EYES: PERRLA, EOMI, sclera anicteric, conjunctiva clear. EARS, NOSE, THROAT: Nares patent, oropharynx clear without exudates. Moist mucous membranes. LUNGS: Breath sounds equal, clear to auscultation bilaterally. HEART: Regular rate and rhythm, normal S1 and S2 without murmur, rub or gallop. ABDOMEN: Soft, nontender, not distended, normoactive bowel sounds. UPPER EXTREMITIES: 2+ pulses, warm, well-perfused. No peripheral edema. LOWER EXTREMITIES: 2+ pulses, warm, well-perfused. No peripheral edema. NEUROLOGICAL: Cranial nerves II-XII intact. Normal speech. Gait not observed. PSYCHIATRIC: Cooperative. Good eye contact. Appropriate mood and affect. SKIN: Warm, dry, normal turgor, no rashes or lesions noted. Laboratory Results - last 24 hr 06/07/18 06/07/18 06:30 06:30 WBC 5.6 RBC 3.36 L Hgb 10.8 Hct 31.6 L MCV 93.8 MCH 32.2 MCHC 34.4 RDW 13.3 Plt Count 164 MPV 8.5 Absolute Neuts (auto) 3.4 Neutrophils % 61.6 D Lymphocytes % 27.4 D Monocytes % 8.2 Eosinophils % 2.3 Basophils % 0.5 Nucleated RBC % 0 Sodium 142 Potassium 3.4 L Chloride 105 Carbon Dioxide 28 Anion Gap 9 BUN 8 Creatinine 0.7 Creat Clearance w eGFR > 60 Random Glucose 77 Calcium 8.0 L Active Medications Generic Name Dose Route Start Last Admin Trade Name Freq PRN Reason Stop Dose Admin Duloxetine HCl 30 mg 06/07/18 10:00 01/22/19 09:06 Cymbalta - PO 30 mg DAILY [facility]ISON Administration Dextrose 1,000 mls @ 60 mls/hr 06/07/18 13:15 06/07/18 13:33 D5w - IV 60 mls/hr ASDIR [facility] Administration Levofloxacin 500 mg 06/07/18 06:00 06/07/18 06:04 Levaquin - PO 500 mg DAILY@0600 [facility] Administration Ondansetron HCl 4 mg 06/06/18 17:05 06/06/18 18:07 Zofran Injection IVPB 4 mg Q6H PRN Administration NAUSEA AND/OR VOMITING Phenytoin Sodium 100 mg 06/06/18 22:00 06/07/18 09:06 Dilantin - PO 100 mg BID [facility]ISON Administration -Spiral CT: 7mm proximal left ureteral calculus with mild hydronephrosis. There is hyperdense fluid within the collecting system suspicious for blood. Additional 6mm nonobstructing calculus within the lower pole of the left kidney. Trace ascites. -Head CT: No significant interval change or acute intracranial pathology. Previously noted dense calcification along medial margin of the left temporal lobe is again seen measuring 1.3cm with an irregular contour likely representing a calcified/ossified meningioma. ASSESSMENT/PLAN: Patient is a 78 year old female with past medical history of IBS and fibromyalgia, presented with a 3-day history of intermitted LLQ and left flank pain. #Left flank pain likely 2/2 nephrolithiasis -spiral CT: 7mm proximal left ureteral calculus with mild hydronephrosis. There is hyperdense fluid within the collecting system suspicious for blood. Additional 6mm nonobstructing calculus within the lower pole of the left kidney. Trace ascites. -UA: grossly red, Blood2+, RBC 3893 -Urology (Dr. Pratt) consulted. -POD 1: Cystoscopy, left retrograde pyelogram, left ureteroscopic stone manipulation, stent placement. -pain management -Levaquin 500mg daily Day 2 -EKG #Dizziness/confusion, rule out seizure -Dilantin level low today. -Patient reported having dilantin level high a few months ago, dose was decreased and Cymbalta was added. -Added Dilantin 500mg IV once today. -Will repeat Dilantin level -Continue home Dilantin 100mg BID -Head CT: No significant interval change or acute intracranial pathology identified. -Neurology (Dr. Navarro) consulted. #Fibromyalgia -Continue home Dilantin #FEN -IV D5W @ 60ml/hr -Electrolytes wnl, routine bmp monitoring -Regular diet #Prophylaxis -SCDs #Disposition -med-surg Visit type - Emergency Visit Emergency Visit: Yes ED Registration Date: 06/04/18 Care time: The patient presented to the Emergency Department on the above date and was hospitalized for further evaluation of their emergent condition. - New Patient This patient is new to me today: No - Critical Care Critical Care patient: No
[2018-06-07] MEDS: ONDANSETRON 4 MG/2 ML VIAL IVPB PRN (16:03)
[2018-06-07] MEDS ORDERED: ACETAMINOPHEN 1000 MG/100 ML VIAL (NON FORMULARY) IVPB ONE (19:45)
[2018-06-07] MEDS: ACETAMINOPHEN 1000 MG/100 ML VIAL (NON FORMULARY) IVPB ONE (20:38)
[2018-06-08] MEDS: DEXTROSE 5%-WATER - 1,000 ML IV SCH ×2 (06:01→21:38)
[2018-06-08 07:05] LABS: HEMATOCRIT 31.9 % (32.4-45.2); HEMOGLOBIN 10.9 GM/dL (10.7-15.3); MCH 32.1 pg (25.7-33.7); MCHC 34.1 g/dl (32.0-36.0); MEAN CELL VOLUME 94.1 fl (80-96); MEAN PLT VOLUME 8.4 fl (7.5-11.1); PLATELET COUNT 173 K/MM3 (134-434); RBC 3.39 M/mm3 (3.60-5.2); RDW 13.8 % (11.6-15.6); WHITE BLOOD COUNT 5.6 K/mm3 (4.0-10.0)
[2018-06-08 07:39] LABS: ANION GAP 6 MMOL/L (8-16); BLOOD UREA NITROGEN 8 mg/dL (7-18); CALCIUM 8.2 mg/dL (8.5-10.1); CHLORIDE 105 mmol/L (98-107); CO2 31 mmol/L (21-32); CREATININE 0.7 mg/dL (0.55-1.3); GLUCOSE,RANDOM 79 mg/dL (74-106); PHOSPHOROUS 3.4 mg/dL (2.5-4.9); POTASSIUM 3.5 mmol/L (3.5-5.1); SODIUM 143 mmol/L (136-145)
[2018-06-08] MEDS ORDERED: PT OWN MED DRAWER 7, Y5N ONE (09:37)
[2018-06-08] MEDS: DULoxetine HCL 30 MG CAPSULE.DR (FP) PO SCH (09:40)
[2018-06-08] MEDS: PHENYTOIN NA EXTENDED 100 MG CAPSULE (FP) PO SCH ×2 (09:40→21:38)
--- NOTE | 2018-06-08 16:18 | PN ---
Teaching Attending Note Name of Resident: Jennifer Hill ATTENDING PHYSICIAN STATEMENT I saw and evaluated the patient. I reviewed the resident's note and discussed the case with the resident. I agree with the resident's findings and plan as documented. SUBJECTIVE: no abd pain, no flank pain. dilantin was TID and was changed to BID in one of the ER visits in [place]. she has break through seizures as out pt . she did not see a neurologist in a long time OBJECTIVE: NAD , anxious looking CV: RRR Lungs: CTAB Ext : no edema , scratch dominguez and scabs on legs and arms Abd: soft, NT, ND , NL BS ASSESSMENT AND PLAN: 78 y/o lady with h/o fibromyalgia and non convulsive seizures who presented with flank pain and was found to have L ureteral stone with hydronephrosis 1- Obstructing L ureteral stone with hydro: s/p stenting . - out pt f/u with uro - abx per urology despite neg urine cx . d/w Dr. Reeder by team 2- Seizure disorder , had non convulsive seizure yesterday. - increase dilantin to TID . - need level on Wednesday - will have neuro review her meds 3- dispo : need rehab .
--- NOTE | 2018-06-08 17:35 | PN ---
Physical Exam: SUBJECTIVE: Patient seen and examined at bedside this morning. No acute events overnight. Patient has no new complaints. OBJECTIVE: Vital Signs Period Temp Pulse Resp BP Sys/Patel Pulse Ox Last 24 Hr 98.3 F-99.0 F 78-101 18-20 115-145/64-86 97-98 GENERAL: Awake, alert, and fully oriented, in no acute distress. HEAD: Normal with no signs of trauma. EYES: PERRLA, EOMI, sclera anicteric, conjunctiva clear. EARS, NOSE, THROAT: Nares patent, oropharynx clear without exudates. Moist mucous membranes. LUNGS: Breath sounds equal, clear to auscultation bilaterally. HEART: Regular rate and rhythm, normal S1 and S2 without murmur, rub or gallop. ABDOMEN: Soft, nontender, not distended, normoactive bowel sounds. UPPER EXTREMITIES: 2+ pulses, warm, well-perfused. No peripheral edema. LOWER EXTREMITIES: 2+ pulses, warm, well-perfused. No peripheral edema. NEUROLOGICAL: Cranial nerves II-XII intact. Normal speech. Gait not observed. PSYCHIATRIC: Cooperative. Good eye contact. Appropriate mood and affect. SKIN: Warm, dry, normal turgor, no rashes or lesions noted. Laboratory Results - last 24 hr 06/07/18 06/08/18 06/08/18 20:03 06:00 06:00 WBC 5.6 RBC 3.39 L Hgb 10.9 Hct 31.9 L MCV 94.1 MCH 32.1 MCHC 34.1 RDW 13.8 Plt Count 173 MPV 8.4 Sodium 143 Potassium 3.5 Chloride 105 Carbon Dioxide 31 Anion Gap 6 L BUN 8 Creatinine 0.7 Creat Clearance w eGFR > 60 Random Glucose 79 Calcium 8.2 L Phosphorus 3.4 Magnesium 2.0 Phenytoin 16.9 Active Medications Generic Name Dose Route Start Last Admin Trade Name Freq PRN Reason Stop Dose Admin Duloxetine HCl 30 mg 06/07/18 10:00 06/08/18 09:40 Cymbalta - PO 30 mg DAILY [facility] Administration Dextrose 1,000 mls @ 60 mls/hr 06/07/18 13:15 06/08/18 06:01 D5w - IV 60 mls/hr ASDIR [facility] Administration Nitrofurantoin Macrocrystals 50 mg 06/09/18 10:00 Macrodantin - PO QID ON LICENSE OF [facility] Ondansetron HCl 4 mg 06/06/18 17:05 06/07/18 16:03 Zofran Injection IVPB 4 mg Q6H PRN Administration NAUSEA AND/OR VOMITING Phenytoin Sodium 100 mg 06/08/18 22:00 Dilantin - PO TID ON LICENSE OF [facility] -Spiral CT: 7mm proximal left ureteral calculus with mild hydronephrosis. There is hyperdense fluid within the collecting system suspicious for blood. Additional 6mm nonobstructing calculus within the lower pole of the left kidney. Trace ascites. -Head CT: No significant interval change or acute intracranial pathology. Previously noted dense calcification along medial margin of the left temporal lobe is again seen measuring 1.3cm with an irregular contour likely representing a calcified/ossified meningioma. ASSESSMENT/PLAN: Patient is a 78 year old female with past medical history of IBS and fibromyalgia, presented with a 3-day history of intermitted LLQ and left flank pain. #Left flank pain likely 2/2 nephrolithiasis -spiral CT: 7mm proximal left ureteral calculus with mild hydronephrosis. There is hyperdense fluid within the collecting system suspicious for blood. Additional 6mm nonobstructing calculus within the lower pole of the left kidney. Trace ascites. -UA: grossly red, Blood2+, RBC 3893 -Urology (Dr. Pratt) consulted. -POD 2: Cystoscopy, left retrograde pyelogram, left ureteroscopic stone manipulation, stent placement. -pain management -Urine culture negative -Levaquin 500mg x3 days completed -Will start Macrobid 100mg BID starting tomorrow as per urology #Dizziness/confusion, rule out seizure -Dilantin level wnl today s/p Dilantin 500mg given yesterday -PCP (Dr. Rodriguez) contacted. Patient has not followed up since 2 years ago. -Her Dilantin dose 100mg TID was decreased about 2 months ago to BID when she was admitted at a hospital in [place] and was noted to have a high dilantin level. Since then, patient has not followed up with Dr. Rodriguez or neurology to have the levels checked. -Will increase Dilantin to 100mg TID -Head CT: No significant interval change or acute intracranial pathology identified. -Neurology consulted. #Fibromyalgia -Continue home Dilantin #FEN -IV D5W @ 60ml/hr -Electrolytes wnl, routine bmp monitoring -Regular diet #Prophylaxis -SCDs #Disposition -med-surg Visit type - Emergency Visit Emergency Visit: Yes ED Registration Date: 06/04/18 Care time: The patient presented to the Emergency Department on the above date and was hospitalized for further evaluation of their emergent condition. - New Patient This patient is new to me today: No - Critical Care Critical Care patient: No
--- NOTE | 2018-06-08 20:36 | CONSULT ---
Consult - text type - Consultation Consultation Note: NEUROLOGY CONSULTATION is greatly appreciated: Events reviewed and patient examined with her brother at the bedside who helps with the history. This 78 yo RH s woman lives alone. 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 Now admitted with flank pain due to nephrolithiasis. She can be warned by a "funny feeling in her head" which is stereotyped. She then "stares" and becomes unresponsive without loss of postural tone. This lasts a few seconds and can include automatisms, usually tapping her left thigh. This is followed by a brief period of confusion x few seconds. She was told these are "Psychomotor Seizures." On Dilantin for 50 years usually at 300 mg/day. A few months ago dose was reduced to 100 mg BID at [facility]. Pt acknowledges increased seizures including those in the hospital, described in the chart. Dilantin level was 3.2 ug% before reloading and 16.8 ug% after. H/O "Fibromyalgia" with pain resolved on Duloxetine 30 mg/d. "Few years" of progressive imbalance and gait dysfunction. S/O falls with B/L Hip fx requiring ORIF 4 and 3 years ago. Has walked with walker since that time. However, this year she has become homebound and spends most of her time in bed. Brother shops or grocer delivers. HARINDER: Thin and frail. No bruits. No head injury. NEURO: MS/Speech: normal CN II-XII normal without Nystagmus. Motor: Fine sustention tremor. No cogwheeling. Normal ANDREA's. Normal strength. Reduced KJ's and absent AJ's. Toes downgoing. Coord: No FTN dystaxia. Sensory: NO VIBRATION BELOW THE KNEES. Romberg +++ Gait: Extremely unsteady, variable, unsafe. Requires assistance. IMP: 1. Seizure Disorder (Complex Partial Seizures) 2. Severe Peripheral Neuropathy probably due to chronic Dilantin Rx. SUGGEST: Continue Dilantin 300 mg qd (can give in one dose) Repeat Phenytoin level in 2 weeks. Also check B12, Folic acid, ESR, CRP. Physiatry consultation, EMG/NCS, and PT for gait training with walker. director of cloud services, Home safety check, Home health aide or SNF placement Neuro f/u as out patient. We can change Dilantin to a newer AED if patient agrees. Thank you very much, Jose R Navarro MD
[2018-06-09] MEDS: PHENYTOIN NA EXTENDED 100 MG CAPSULE (FP) PO SCH (05:51)
[2018-06-09] MEDS ORDERED: PT OWN MED DRAWER 7, Y5N ONE (08:33)
[2018-06-09] MEDS: DULoxetine HCL 30 MG CAPSULE.DR (FP) PO SCH (09:06)
[2018-06-09 09:12] VITALS: BP 115/70; PULSE 96; TEMP 98.3
[2018-06-09] MEDS ORDERED: NITROFURANTOIN MACROCRYSTAL 50 MG CAPSULE (FP) PO SCH (10:00)
--- NOTE | 2018-06-09 11:26 | PN ---
Progress Note (short form) - Note Progress Note: Contacted by Dr. Navarro yesterday evening. He informed me the patient is known to him from the office. In agreement that he will be managing care, defer to him on patient care. Thank you for your consultation request.
--- NOTE | 2018-06-09 14:01 | PN ---
Teaching Attending Note Name of Resident: Jennifer Hill ATTENDING PHYSICIAN STATEMENT I saw and evaluated the patient. I reviewed the resident's note and discussed the case with the resident. I agree with the resident's findings and plan as documented. SUBJECTIVE: feels better . No abd pain, no weakness. no SOB . no events last night OBJECTIVE: NAD CV: RRR Lungs: CTAB Ext : no edema, scratch dominguez and scabs on legs and arms ASSESSMENT AND PLAN: 78 y/o lady with h/o fibromyalgia and non convulsive seizures who presented with flank pain and was found to have L ureteral stone with hydronephrosis 1- Obstructing L ureteral stone with hydro: s/p stenting . - out pt f/u with uro - Abx d/w Dr. Pratt yesterday, recommended to treat with Macrobid fro total of 7 days 2- Seizure disorder with event in house - Cont dilantin 100 mg TID . she prefer to use TID rather than 300 mg once daily - dilantin level as out pt -furhtamrit neurological w/u as out pt . f/u with neuro for EMG/NCS 3- Moderate malnutrition Dispo : Dc to rehab
--- NOTE | 2018-06-09 17:10 | DS ---
Physical Exam: SUBJECTIVE: Patient seen and examined at bedside this morning. No acute events overnight. Patient is a bit anxious today after learning that she is going to be discharged to [facility]. Explained to patient in detail everything that was done to her here in the hospital, medications she will continue to take, and her follow-up with uro. Patient understood and was more at ease afterwards. OBJECTIVE: Vital Signs Period Temp Pulse Resp BP Sys/Patel Pulse Ox Last 24 Hr 98.2 F-98.6 F 72-96 18-18 115-135/67-80 97-97 PHYSICAL EXAM GENERAL: Awake, alert, and fully oriented, in no acute distress. HEAD: Normal with no signs of trauma. EYES: PERRLA, EOMI, sclera anicteric, conjunctiva clear. EARS, NOSE, THROAT: Nares patent, oropharynx clear without exudates. Moist mucous membranes. LUNGS: Breath sounds equal, clear to auscultation bilaterally. HEART: Regular rate and rhythm, normal S1 and S2 without murmur, rub or gallop. ABDOMEN: Soft, nontender, not distended, normoactive bowel sounds. UPPER EXTREMITIES: 2+ pulses, warm, well-perfused. No peripheral edema. LOWER EXTREMITIES: 2+ pulses, warm, well-perfused. No peripheral edema. NEUROLOGICAL: Cranial nerves II-XII intact. Normal speech. Gait not observed. PSYCHIATRIC: Cooperative. Good eye contact. Appropriate mood and affect. SKIN: Warm, dry, normal turgor, no rashes or lesions noted. LABS Laboratory Results - last 24 hr 06/08/18 06/09/18 06:00 08:20 Sodium 143 Potassium 3.5 Chloride 105 Carbon Dioxide 31 Anion Gap 6 L BUN 8 Creatinine 0.7 Creat Clearance w eGFR > 60 Random Glucose 79 Calcium 8.2 L Phosphorus 3.4 Magnesium 2.0 Vitamin B12 1090 H -Spiral CT: 7mm proximal left ureteral calculus with mild hydronephrosis. There is hyperdense fluid within the collecting system suspicious for blood. Additional 6mm nonobstructing calculus within the lower pole of the left kidney. Trace ascites. -Head CT: No significant interval change or acute intracranial pathology. Previously noted dense calcification along medial margin of the left temporal lobe is again seen measuring 1.3cm with an irregular contour likely representing a calcified/ossified meningioma. HOSPITAL COURSE: Date of Admission:06/04/18 Date of Discharge: 06/09/18 Patient is a 78 year old female with past medical history of IBS and fibromyalgia, presented with a 3-day history of intermitted LLQ and left flank pain. On CT scan, patient was noted to left ureteral stone. Urology was consulted. Patient underwent Cystoscopy, left retrograde pyelogram, left ureteroscopic stone manipulation, stent placement. Patient tolerated procedure well and was given Levaquin as urine was noted to be cloudy. Patient was also noted to have episodes of confusion or dizziness. Her dilantin level was noted to be low, and she was given Dilantin 500mg once, in addition to her home dose of Dilantin 100mg BID. Neurology was consulted. Head CT did not show any significant interval change or acute intracranial pathology. Her dilantin was increased to 100mg TID. Patient was discharged to [facility] to continue rehab. She was instructed to follow-up with PCP, urology and neurology, and to have her dilantin level rechecked. Minutes to complete discharge: 40 Discharge Summary Reason For Visit: OBSTRUCTION OF LEFT URETEROPELVIC JUNCTION Condition: Improved - Instructions Diet, Activity, Other Instructions: Your visit You were admitted to the hospital because your have left lower belly pain and back pain. You were diagnosed to have a kidney stone. You underwent cystoscopy and a stent was placed on your urinary tract. This may cause burning while urinating for a few days. Your Dilantin level was low while you were here. We will increase your dose to 100mg three times a day. Your primary care doctor, Dr. Rodriguez, is aware. Please follow-up with him within 1 week. Medications Take the following medications as prescribed: 1. Macrobid 100mg twice a day for 5 days. 2. Increase your Dilantin dose to 100mg three times a day. -Continue your other home medications as prescribed. Care -Your dilantin dose was increased. Please have your dilantin levels checked on Wednesday (06/13/18). Follow-up -Please follow-up with the urologist (Dr. Pratt) within 2 weeks. Please call the office to schedule an appointment. -Follow-up with your primary care doctor (Dr. Rodriguez) within 1 week. - please see your neurologist in 1 week. if you lost contact with him, you can see Dr. Navarro . you need nerve conduction studies and EMG done Additional info Call 911 or go to the ED if with any worsening fever, chills, headache, dizziness, nausea, vomiting, chest pain, shortness of breath, abdominal pain, back pain ro any new concerns noted. No driving or climbing ladders or operating heavy machines Referrals: Keegan Rodriguez MD [Primary Care Provider] - 1 Week Jose R Navarro MD [Staff Physician] - 1 Week Miguel Pratt MD [Staff Physician] - 1 Week Disposition: ASSISTED FACILITY - Home Medications Comprehensive Discharge Medication List: Ambulatory Orders Duloxetine HCl [Cymbalta -] 30 mg PO DAILY 05/17/14 Nitrofurantoin Macrocrystal [Macrodantin -] 100 mg PO BID 5 Days capsule Phenytoin Na Extended [Dilantin -] 100 mg PO TID capsule 06/08/18 This patient is new to me today: No Emergency Visit: Yes ED Registration Date: 06/04/18 Care time: The patient presented to the Emergency Department on the above date and was hospitalized for further evaluation of their emergent condition. Critical Care patient: No - Discharge Referral Referred to [facility] Med P.C.: No
== END 2018-06-09 12:35 | DRG 660 ==
LOC: JER 19:58 → JERBED 06-04 03:39 → J7W 06-04 07:59 → OBSVTOIN 06-04 18:05
PROVIDERS: ADMIT Internal Medicine; ATTEND Internal Medicine
PROC: 0T778DZ Dilation of Left Ureter with Intraluminal Device, Via Natural or Artificial Opening Endoscopic (ICD-10-PCS; principal; 2018-06-06 13:00)
PROC: BT1BZZZ Fluoroscopy of Bladder and Urethra (ICD-10-PCS; 2018-06-06 13:00)
DX: N13.2 Hydronephrosis with renal and ureteral calculous obstruction (principal); E44.0 Moderate protein-calorie malnutrition; R18.8 Other ascites; G40.209 Localization-related (focal) (partial) symptomatic epilepsy and epileptic syndromes with complex partial seizures, not intractable, without status epilepticus; G62.0 Drug-induced polyneuropathy; T42.0X5A Adverse effect of hydantoin derivatives, initial encounter; Y92.038 Other place in apartment as the place of occurrence of the external cause; M79.7 Fibromyalgia; K21.9 Gastro-esophageal reflux disease without esophagitis; R42 Dizziness and giddiness
CPT/HCPCS: 36415; 70450-TC; 74176; 80048; 80053; 80185; 81003; 81015; 82607; 82962; 83735; 84100; 85025; 85027; 87086; 93005; 93010; 94760; 97116-GP; 97162-GP; 99282-25; G0378; J0131; J7030

== ENCOUNTER 2018-07-11 06:15 | Day surgery (SDC) | payer OTHER, BC ==
[2018-07-08 09:35] VITALS: BMI 16.2
[2018-07-11 06:51] VITALS: TEMP 98
[2018-07-11] MEDS ORDERED: MIDAZOLAM HCL 2 MG/2 ML SINGLE DOSE VIAL ONE ×2 (08:25)
[2018-07-11] MEDS ORDERED: DEXAMETHASONE SOD PHOSPHATE 4 MG/1 ML VIAL ONE (09:07)
--- NOTE | 2018-07-11 09:26 | OP ---
Operative Note - Note: Operative Date: 07/11/18 Pre-Operative Diagnosis: Left renal stone Operation: Left ESWL Findings: 7 mm lower pole left renal stone Post-Operative Diagnosis: Same as Pre-op Surgeon: Miguel Pratt Anesthesia: Fractional Estimated Blood Loss (mls): 0 Drains & Tubes with Location: JJ stend Left Drains, Volume Out (mls): 1 Operative Report Dictated: Yes
[2018-07-11 12:09] VITALS: BP 119/79; PULSE 82
--- NOTE | 2018-07-12 07:54 | OP ---
DATE OF OPERATION: 07/11/2018 PREOPERATIVE DIAGNOSIS: Left renal stone. POSTOPERATIVE DIAGNOSIS: Left renal stone. PROCEDURE: Left extracorporeal shock wave lithotripsy. ATTENDING: Javid Torres MD ANESTHESIA: Fractional. OPERATION FOLLOWS: The patient was brought in the operating room, placed in supine position on the operating room table. Ultrasonography and fluoroscopy were performed. A 7-mm left lower pole stone was identified. At this point, anesthesia and preoperative antibiotics were administered. Shock wave lithotripsy was then performed. Excellent fragmentation of the stone was noted. Under real time ultrasonography and fluoroscopy, no complications were noted. The disposition of the patient was to the recovery room. JAVID TORRES M.D. [id number]
== END 2018-07-11 12:09 | disposition home or self-care (01) ==
LOC: JASU-SURG 06:15
PROVIDERS: ATTEND Urology
PROC: 0TF4XZZ Fragmentation in Left Kidney Pelvis, External Approach (ICD-10-PCS; principal; 2018-07-11 08:00)
DX: N20.0 Calculus of kidney (principal)

== ENCOUNTER 2018-08-28 07:40 | Emergency (ER) | payer OTHER, BC ==
[2018-08-28 07:49] VITALS: BMI 23.4
[2018-08-28 08:35] LABS: BASO % 0.7 % (0-2.0); HEMATOCRIT 35.5 % (32.4-45.2); LYMPH % 28.4 % (8-40); MCH 31.9 pg (25.7-33.7); MCHC 33.9 g/dl (32.0-36.0); MEAN PLT VOLUME 8.1 fl (7.5-11.1); MONO % 6.9 % (3.8-10.2); PLATELET COUNT 180 K/MM3 (134-434); RBC 3.77 M/mm3 (3.60-5.2); WHITE BLOOD COUNT 5.2 K/mm3 (4.0-10.0)
--- NOTE | 2018-08-28 08:41 | PDOC ---
History of Present Illness - General Chief Complaint: Pain, Acute Stated Complaint: KIDNEY PAIN Time Seen by Provider: 08/28/18 07:42 History Source: Patient Exam Limitations: No Limitations - History of Present Illness Travel History: No Initial Comments: 08/28/18 08:13 78-year-old female presents to the ED with complaints of left lower quadrant pain and left flank pain which is intermittent worse with urination. Patient states had a stent placed secondary to renal calculi earlier this year by Dr. manolo herrera and is due for removal in about 10 days. Patient states continues to have hematuria which the urologist is aware of but is concerned of the discomfort. Patient denies fever, chills, nausea, diarrhea, constipation, or change in appetite. Timing/Duration: reports: intermittent Quality: reports: mild, sharpness Abdominal Pain Onset Location: reports: LLQ, flank (left) Pain Radiation: reports: no radiation Activities at Onset: reports: none Aggravating Factors: improves with: Voiding Alleviating Factors: improves with: None Past History - Travel Traveled outside of the country in the last 30 days: No Close contact w/someone who was outside of country & ill: No - Past Medical History Allergies/Adverse Reactions: Allergies Allergy/AdvReac Type Severity Reaction Status Date / Time No Known Allergies Allergy Verified 08/28/18 07:48 Home Medications: Ambulatory Orders Duloxetine HCl [Cymbalta -] 30 mg PO DAILY 05/17/14 Phenytoin Na Extended [Dilantin -] 100 mg PO TID capsule 06/08/18 Nitrofurantoin Monohyd/M-Cryst [Macrobid -] 100 mg PO BID #14 capsule 08/28/18 Phenazopyridine HCl [Pyridium] 200 mg PO TID #6 tablet 08/28/18 Anemia: No Asthma: No Cancer: No Cardiac Disorders: No CVA: No COPD: No CHF: No Dementia: No Diabetes: No GI Disorders: (IBS) Disorders: No HTN: No Hypercholesterolemia: No Liver Disease: No 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) Thyroid Disease: No - Surgical History Orthopedic Surgery: Yes (orif both legs) - Immunization History Td Vaccination: Yes TDAP Vaccination: Yes Immunization Up to Date: Yes - Suicide/Smoking/Psychosocial Hx Smoking History: Never smoked Have you smoked in the past 12 months: No Number of Cigarettes Smoked Daily: 0 Cigars Per Day: 0 Information on smoking cessation initiated: No Hx Alcohol Use: No Drug/Substance Use Hx: No Substance Use Type: None Hx Substance Use Treatment: No Patient Lives Alone: Yes Lives with/in: lives alone Review of Systems - Review of Systems Able to Perform ROS?: No Is the patient limited Stateless proficient: No Constitutional: No: Symptoms Reported HEENTM: No: Symptoms Reported Respiratory: No: Symptoms reported Cardiac (ROS): No: Symptoms Reported ABD/GI: Yes: Abdominal cramping. No: Nausea, Vomiting : Yes: Flank Pain, Hematuria Integumentary: No: Symptoms Reported Neurological: No: Symptoms reported Hematologic/Lymphatic: No: Symptoms Reported *Physical Exam - Vital Signs Last Vital Signs Temp Pulse Resp BP Pulse Ox 97.8 F 78 16 120/72 99 08/28/18 07:40 08/28/18 07:40 08/28/18 07:40 08/28/18 07:40 08/28/18 07:40 - Physical Exam General Appearance: Yes: Nourished, Appropriately Dressed. No: Apparent Distress HEENT: positive: Pharynx Normal Neck: positive: Supple Respiratory/Chest: positive: Lungs Clear, Normal Breath Sounds. negative: Respiratory Distress, Accessory Muscle Use Cardiovascular: positive: Regular Rhythm, Regular Rate. negative: Murmur Gastrointestinal/Abdominal: positive: Normal Bowel Sounds, Soft, Tenderness ( left lower quadrant left flank). negative: Distended Musculoskeletal: positive: CVA Tenderness (L) (mild) Extremity: positive: Normal Capillary Refill. negative: Pedal Edema Integumentary: positive: Normal Color, Warm, Moist Neurologic: positive: Motor Strength 5/5 (ambulatory) ED Treatment Course - LABORATORY CBC & Chemistry Diagram: 08/28/18 08:15 08/28/18 08:15 - RADIOLOGY Radiology Studies Ordered: Category Date Time Status KIDNEY / RENAL US [US] Stat Ultrasound 08/28/18 08:04 Ordered Medical Decision Making - Medical Decision Making 08/28/18 08:26 Chief complaint: Left lower quadrant left flank pain with hematuria. History of renal colic with stent placed approximately [address] Pratt, Exam: Left lower quadrant left flank pain mild left CVA tenderness on exam. No abdominal distention Plan: Labs, urine, ultrasound 08/28/18 11:00 Laboratory Tests 08/28/18 08/28/18 08:15 08:15 WBC 5.2 Hgb 12.0 Hct 35.5 Neutrophils % 61.0 Sodium 138 Potassium 3.8 Chloride 102 Carbon Dioxide 32 Anion Gap 4 L BUN 12 Creatinine 0.8 Random Glucose 85 Calcium 8.1 L Total Bilirubin 0.3 AST 23 ALT 22 Alkaline Phosphatase 122 H Total Protein 6.6 Albumin 3.7 Lipase 143 08/28/18 11:21 Ultrasound shows no hydronephrosis. Left nephroureteral stent in place. Nonobstructing left renal pole calculus noted. Kidneys appear borderline in size no obvious mass lesions seen. Cortical thickness and echogenicity appear unremarkable bilaterally. No obvious perirenal fluid collection 08/28/18 13:45 Laboratory Tests 08/28/18 11:42 Urine pH 8.5 H D Ur Specific [place] 1.009 L Urine Protein 1+ H Urine Glucose (UA) Negative Urine Blood 3+ H Urine Nitrite Negative Urine Bilirubin Negative Ur Leukocyte Esterase Trace Urine WBC (Auto) 3 Urine RBC (Auto) 384 Pt will be given abx due to complaints. U cx sent. Pt has appt w/ pmd tomorrow and urologist next wednesday for stent removal 08/28/18 14:00 Pt requesting transportation since she uses a walker at home to ambulate and took a ambulance here so does not have a walker. Pt also asking for hemorrhoid suppositories *DC/Admit/Observation/Transfer Diagnosis at time of Disposition: Suprapubic discomfort, Dysuria - Discharge Dispostion Disposition: HOME Condition at time of disposition: Improved - Prescriptions Prescriptions: Nitrofurantoin Monohyd/M-Cryst [Macrobid -] 100 mg PO BID #14 capsule Phenazopyridine HCl [Pyridium] 200 mg PO TID #6 tablet - Referrals Referrals: Keegan Rodriguez MD [Primary Care Provider] - Miguel Pratt MD [Staff Physician] - - Patient Instructions Printed Discharge Instructions: DI for Urinary Tract Infection (UTI) Additional Instructions: Please take antibiotic and medication as prescribed. Drink plenty of fluids. Follow up with your doctors as scheduled - Post Discharge Activity
[2018-08-28 08:59] LABS: ALBUMIN 3.7 g/dl (3.4-5.0); ALK PHOS 122 U/L (45-117); ANION GAP 4 MMOL/L (8-16); BILIRUBIN,TOTAL 0.3 mg/dL (0.2-1); BLOOD UREA NITROGEN 12 mg/dL (7-18); CALCIUM 8.1 mg/dL (8.5-10.1); CHLORIDE 102 mmol/L (98-107); CO2 32 mmol/L (21-32); CREATININE 0.8 mg/dL (0.55-1.3); GLUCOSE,RANDOM 85 mg/dL (74-106); LIPASE 143 U/L (73-393); POTASSIUM 3.8 mmol/L (3.5-5.1); SGOT/AST 23 U/L (15-37); SGPT/ALT 22 U/L (13-61); SODIUM 138 mmol/L (136-145); TOT PROT 6.6 g/dl (6.4-8.2)
[2018-08-28 12:33] LABS: EPI CELLS 1.1 /HPF (0-5/HPF); PH,URINE 8.5 (5.0-8.0); URINE APPEARANCE CLEAR; URINE BACTERIA 3.2 /hpf (NEGATIVE); URINE BILIRUBIN NEGATIVE (NEGATIVE); URINE CASTS 1 /hpf (0-8); URINE COLOR YELLOW; URINE GLUCOSE (UA) NEGATIVE (NEGATIVE); URINE KETONE NEGATIVE (NEGATIVE); URINE LEUK ESTERASE TRACE (NEGATIVE); URINE NITRITE NEGATIVE (NEGATIVE); URINE PROTEIN 1+ (NEGATIVE); URINE RBC 384 /hpf (0-4); URINE UROBILINOGEN 0.2 mg/dL (0.2-1.0); URINE WBC 3 /hpf (0-5)
[2018-08-28 16:31] VITALS: TEMP 98.3
[2018-08-28 17:52] VITALS: BP 136/94; PULSE 90
== END 2018-08-28 17:53 | disposition home or self-care (01) ==
LOC: JER 07:40
DX: R10.32 Left lower quadrant pain (principal); R30.0 Dysuria; Z96.0 Presence of urogenital implants; R56.9 Unspecified convulsions; Z87.442 Personal history of urinary calculi
CPT/HCPCS: 36415; 76775-TC; 80053; 81003; 83690; 85025; 87086; 99283-25

== ENCOUNTER 2018-09-05 07:18 | Day surgery (SDC) | payer OTHER, BC ==
[2018-09-02 11:15] VITALS: BMI 17.6
[2018-09-05] MEDS ORDERED: oxyCODONE HCL 5 MG TABLET PO PRN (09:44)
[2018-09-05] MEDS ORDERED: ONDANSETRON 4 MG/2 ML VIAL IVPUSH PRN (09:44)
[2018-09-05] MEDS ORDERED: LACTATED RINGERS SOLUTION 1,000 ML IV SCH (09:45)
[2018-09-05] MEDS ORDERED: LIDOCAINE HCL/PF 2% SDV 5ML VIAL ONE (10:06)
[2018-09-05] MEDS ORDERED: MIDAZOLAM HCL 2 MG/2 ML SINGLE DOSE VIAL ONE (10:07)
[2018-09-05] MEDS ORDERED: PROPOFOL 20 ML ONE ×2 (10:07→10:14)
[2018-09-05] MEDS ORDERED: IOHEXOL 300 MG/ML INFUS..BTL IV ONE (10:27)
--- NOTE | 2018-09-05 10:47 | OP ---
Operative Note - Note: Operative Date: 09/05/18 Pre-Operative Diagnosis: left urolithiasis Operation: cystoscopy/left stent removal/left retrograde pyelogram/left ureteroscopy Findings: blood clot and gravel in proximal ureter Post-Operative Diagnosis: Same as Pre-op Surgeon: Miguel Pratt Anesthesia: General Specimens Removed: left ureteral stent
--- NOTE | 2018-09-05 11:53 | OP ---
DATE OF OPERATION: 09/05/2018 PREOPERATIVE DIAGNOSIS: Left ureterolithiasis. POSTOPERATIVE DIAGNOSIS: Left ureterolithiasis. PROCEDURE: Cystoscopy, left ureteral stent removal, left retrograde pyelogram, and left ureteroscopy. ATTENDING: Javid Torres MD ANESTHESIA: General. DESCRIPTION OF OPERATION: The patient has a history of a 7-mm obstructing stone and is status post a left ureteral stent placement. Extracorporeal shockwave lithotripsy was then performed on this stone. The patient presents for removal of the left stent. The patient understands all risks and benefits. The patient was brought to the operating room and placed in the supine position on the operating room table. Anesthesia and preoperative antibiotics were administered. The patient was then placed in the dorsal lithotomy position and prepped and draped in the usual sterile manner. Cystoscopy is performed and the left ureteral stent is seen and removed with the grasping forceps. A retrograde pyelogram is performed and a filling defect in the proximal ureter is seen. A wire is then passed proximally under fluoroscopic visualization. Ureteroscopy was then performed. A rigid ureteroscope was taken to the level of the filling defect. A blood clot with sub-millimeter stones is noted within the clot. Irrigation was utilized and the clot was dissolved. There was no significant stone to grasp. These fragments are not clinically significant. It was decided to leave the patient without a stent. The patient will be followed postoperatively. No complications were noted. The patient was sent to the postanesthesia care unit without complications. JAVID TORRES M.D. /[id number]
[2018-09-05 15:14] VITALS: BP 136/89; PULSE 83; TEMP 97.9
--- NOTE | 2018-09-06 09:01 | PATH ---
Surgical Pathology Report Patient Name: ALVIN FORTE Med. Rec. #: [id number] /Age/Gender: 1940 (Age: 78) / F Account: [id number] Location: [facility] Taken: 09/05/2018 Received: 09/05/2018 Reported: 09/06/2018 Physicians: Miguel Pratt Specimen(s) Received LEFT URETERAL STENT Clinical History Urolithiasis Final Diagnosis DIRECTOR DERMATOLOGY, LEFT URETER, REMOVAL: URETERAL STENT (GROSS ONLY). Electronically Signed Antoni Schwab M.D. Gross Description Received fresh labeled "left ureteral stent," is a 32 cm in length blue-green, coiled portion of tubing, consistent with a ureteral stent. No soft tissue is present. No sections are submitted, gross only. /09/05/2018 saudi09/05/2018
== END 2018-09-05 15:10 | disposition home or self-care (01) ==
LOC: JASU-SURG 07:18
PROVIDERS: ATTEND Urology
PROC: 0TP98DZ Removal of Intraluminal Device from Ureter, Via Natural or Artificial Opening Endoscopic (ICD-10-PCS; principal; 2018-09-05 09:00)
DX: N20.1 Calculus of ureter (principal)
CPT/HCPCS: 76000-TC-FY; 88300-TC; 94760

== ENCOUNTER 2018-10-16 18:15 | Emergency (ER) | payer OTHER, BC ==
[2018-10-16 18:24] VITALS: TEMP 98.5; BMI 14.1
[2018-10-16 18:54] LABS: BASO % 0.2 % (0-2.0); EOS % 0.6 % (0-4.5); HEMATOCRIT 39.2 % (32.4-45.2); HEMOGLOBIN 12.9 GM/dL (10.7-15.3); LYMPH % 8.6 % (8-40); MCH 31.3 pg (25.7-33.7); MCHC 32.9 g/dl (32.0-36.0); MEAN CELL VOLUME 94.9 fl (80-96); MEAN PLT VOLUME 8.4 fl (7.5-11.1); MONO % 4.3 % (3.8-10.2); NEUT % 86.3 % (42.8-82.8); PLATELET COUNT 163 K/MM3 (134-434); RBC 4.13 M/mm3 (3.60-5.2); RDW 13.9 % (11.6-15.6); WHITE BLOOD COUNT 10.1 K/mm3 (4.0-10.0)
[2018-10-16] MEDS ORDERED: SODIUM CHLORIDE 0.9% 500 ML INFUS.BAG IV ONE ×3 (19:20→22:51)
[2018-10-16] MEDS ORDERED: ONDANSETRON 4 MG/2 ML VIAL IVPB ONE (19:20)
[2018-10-16] MEDS ORDERED: ONDANSETRON 4 MG/2 ML VIAL ONE (19:21)
--- NOTE | 2018-10-16 19:33 | PDOC ---
History of Present Illness <Viri Nichols - Last Filed: 10/17/18 00:49> - History of Present Illness Initial Comments: Abbey Soliz is a 78yo woman with a PMH of seizures, L meningioma (dx age 30), fibromyalgia, osteoporosis, multiple fractures 2/2 frequent falls who presents from [facility] with AMS and hypoglycemia to 50. IM glucagon was given, and repeat fingerstick on arrival was noted to be 176. Ms Soliz states only that she is nauseated. She says that she is here because she had a hematoma and went to [facility], and then they sent her here. She says that the last thing she remember is "she was pouring food" and then she woke up in the ambulance. <Viridiana Flanagan - Last Filed: 10/17/18 01:23> - General Chief Complaint: Blood Sugar Problem Stated Complaint: blood sugar problem Time Seen by Provider: 10/16/18 19:05 Past History <Viri Nichols - Last Filed: 10/17/18 00:49> - Past Medical History Anemia: No Asthma: No Cancer: No Cardiac Disorders: No CVA: No COPD: No CHF: No Dementia: No Diabetes: No GI Disorders: Yes (IBS) Disorders: No HTN: No Hypercholesterolemia: No Liver Disease: No Seizures: Yes (PSYCHMOTOR SEIZURES-LAST ONE MONTH AGO) Thyroid Disease: No - Surgical History Orthopedic Surgery: Yes (orif both legs [id number]) - Immunization History Td Vaccination: Yes TDAP Vaccination: Yes Immunization Up to Date: Yes - Suicide/Smoking/Psychosocial Hx Smoking History: Never smoked Have you smoked in the past 12 months: No Number of Cigarettes Smoked Daily: 0 Cigars Per Day: 0 Information on smoking cessation initiated: No Hx Alcohol Use: No Drug/Substance Use Hx: No Substance Use Type: None Hx Substance Use Treatment: No <Viridiana Flanagan - Last Filed: 10/17/18 01:23> - Past Medical History Allergies/Adverse Reactions: Allergies Allergy/AdvReac Type Severity Reaction Status Date / Time No Known Allergies Allergy Verified 08/28/18 07:48 Home Medications: Ambulatory Orders Duloxetine HCl [Cymbalta -] 30 mg PO DAILY 05/17/14 Acetaminophen [Tylenol] 650 mg PO Q6H PRN 10/16/18 Alendronate Sodium/Vitamin D3 [Fosamax Plus D 70 mg-5,600 Iu vIT d] 1 each PO Q7D 10/16/18 Calcium Carbonate 600 mg PO DAILY 10/16/18 Carbamazepine 200 mg PO TID 10/16/18 Phenytoin Na Extended [Dilantin -] 100 mg PO BID 10/16/18 Review of Systems - Review of Systems Comments:: AMS, could not obtain <Viridiana Flanagan - Last Filed: 10/17/18 01:23> *Physical Exam - Vital Signs Last Vital Signs Temp Pulse Resp BP Pulse Ox 98.5 F 89 18 145/83 98 10/16/18 18:20 10/16/18 21:19 10/16/18 21:19 10/16/18 21:19 10/16/18 21:19 <Viri Nichols - Last Filed: 10/17/18 00:49> - Vital Signs Last Vital Signs Temp Pulse Resp BP Pulse Ox 98.5 F 113 H 20 148/96 93 L 10/16/18 18:20 10/16/18 18:20 10/16/18 18:20 10/16/18 18:20 10/16/18 18:20 - Physical Exam Comments: General: Uncomfortable, frail, no acute distress HEENT: Keeps eyes closed, voice normal, no acute injury Cards: RRR, +systolic murmur Pulm: Comfortable on room air, clear to auscultation bilaterally on anterior/ lateral exam Abd: Soft, nontender, nondistended. Suprapubic fullness c/w full bladder Ext: Atraumatic. No LE edema. Vasc: Extremities WWP. Skin: Normal color, no rashes or lesions Neuro: Awake, oriented to name/place, somewhat confused answers, CN grossly intact, normal speech Psych: Anxious, upset <Viridiana Flanagan - Last Filed: 10/17/18 01:23> ED Treatment Course - LABORATORY CBC & Chemistry Diagram: 10/16/18 18:50 10/16/18 18:50 - ADDITIONAL ORDERS Additional order review: Laboratory Results 10/16/18 10/16/18 10/16/18 19:40 18:50 18:29 Sodium 142 Potassium 3.4 L Chloride 104 Carbon Dioxide 28 Anion Gap 11 BUN 19 H Creatinine 0.9 Est GFR (CKD-EPI)AfAm 71.98 Est GFR (CKD-EPI)NonAf 62.11 POC Glucometer 179 Random Glucose 170 H Calcium 8.7 Total Bilirubin 0.4 AST 24 ALT 33 Alkaline Phosphatase 102 Total Protein 6.5 Albumin 3.6 Urine Color Yellow Urine Appearance Clear Urine pH 6.0 D Ur Specific [place] 1.022 Urine Protein Trace Urine Glucose (UA) Negative Urine Ketones 1+ H Urine Blood Negative Urine Nitrite Negative Urine Bilirubin Negative Urine Urobilinogen 0.2 Ur Leukocyte Esterase Negative 10/16/18 10/16/18 18:50 18:29 RBC 4.13 MCV 94.9 MCHC 32.9 RDW 13.9 MPV 8.4 Neutrophils % 86.3 H D Lymphocytes % 8.6 D Monocytes % 4.3 Eosinophils % 0.6 Basophils % 0.2 POC Glucometer 179 - RADIOLOGY Radiology Studies Ordered: Category Date Time Status HEAD CT WITHOUT CONTRAST [CT] Stat CT Scan 10/16/18 20:55 Taken - Medications Given in the ED: ED Medications Discontinued Medications Generic Name Dose Route Start Last Admin Trade Name Freq PRN Reason Stop Dose Admin Famotidine/Sodium Chloride 20 mg in 50 mls @ 100 mls/hr 10/16/18 20:54 21:04 Pepcid 20 Mg Premixed Ivpb - IVPB 10/16/18 21:23 100 mls/hr ONCE ONE Administration Magnesium Sulfate 2 gm 10/16/18 21:01 10/16/18 21:17 Magnesium Sulfate IVPB 10/16/18 21:02 2 gm ONCE ONE Administration Ondansetron HCl 4 mg 10/16/18 19:20 10/16/18 19:28 Zofran Injection IVPB 10/16/18 19:21 4 mg ONCE ONE Administration Potassium Chloride 20 meq 10/16/18 21:01 10/16/18 21:17 K-Dur - PO 10/16/18 21:02 20 meq ONCE ONE Administration Sodium Chloride 1,000 ml 10/16/18 19:20 10/16/18 19:27 Normal Saline - IV 10/16/18 19:21 1,000 ml ONCE ONE Administration Sodium Chloride 1,000 ml 10/16/18 21:05 10/16/18 22:53 Normal Saline - IV 10/16/18 21:06 1,000 ml ONCE ONE Administration <Viri Nichols - Last Filed: 10/17/18 00:49> - LABORATORY CBC & Chemistry Diagram: 10/16/18 18:50 10/16/18 18:50 - ADDITIONAL ORDERS Additional order review: Laboratory Results 10/16/18 18:29 POC Glucometer 179 10/16/18 10/16/18 18:50 18:29 RBC 4.13 MCV 94.9 MCHC 32.9 RDW 13.9 MPV 8.4 Neutrophils % 86.3 H D Lymphocytes % 8.6 D Monocytes % 4.3 Eosinophils % 0.6 Basophils % 0.2 POC Glucometer 179 <Viridiana Flanagan - Last Filed: 10/17/18 01:23> Medical Decision Making - Medical Decision Making 10/16/18 19:22 Abbey Soliz is a 78yo woman with a PMH of seizures, L meningioma (dx age 30), fibromyalgia, osteoporosis, multiple fractures 2/2 frequent falls who presents from [facility] with AMS and hypoglycemia to 50, improved to 176 on arrival after receiving glucagon - No h/o DM. Possible infectious cause of low glucose today, most likely UTI - Reports significant nausea, may be due to hypoglycemia. Zofran ordered - CBC, CMP, UA, EKG ordered on arrival - 1L NS bolus. Tachycardic, suspect dehydration 10/16/18 21:01 - Labs reviewed. BUN/Cr elevated from baseline at 19/0.9 (baseline 8, 0.5). UA with +ketones - Feeling improved, AMS improved. Reports that she was admitted to rehab at [facility] on Wednesday but previously lived at home. Has been nauseated for two days with multiple episodes of vomiting overnight. Reports that she has not had anything to eat or drink in 2 days - Still feeling nauseated, famotidine and additional 1L IVF ordered 10/16/18 23:13 - CT completed, reviewed w/ Dr Nichols. No acute changes compared to previous. Radiology report pending - Pt reports exacerbation of her chronic back pain following the CT. Will give acetaminophen - Still feeling nauseated, though able to eat natalie crackers. Reglan for continued nausea. - Plan to d/c home pending completion of fluids and CT report 10/17/18 01:15 - Initial CT report w/ possible abnormalities but no comparison to prior. Radiology contacted, new report w/ no acute changes compared to previous - Will d/c home. Low glucose likely due to vomiting, low PO intake for several days. Able to tolerate crackers in ED Discussed with Dr Simone Flanagan PGY1 <Viridiana Flanagan - Last Filed: 10/17/18 01:23> *DC/Admit/Observation/Transfer - Discharge Dispostion Decision to Admit order: No <Viri Nichols - Last Filed: 10/17/18 00:49> <Viridiana Flanagan - Last Filed: 10/17/18 01:23> Diagnosis at time of Disposition: Nausea, Dehydration - Discharge Dispostion Disposition: [facility] Condition at time of disposition: Improved - Patient Instructions Printed Discharge Instructions: DI for Dehydration -- Adult Additional Instructions: Discharge Instructions: You were seen in the ED for low blood sugar, resulting in altered mental state. You were found to be dehydrated, most likely due to vomiting and low food/drink intake over the past few days. Home Care: - Make sure you are drinking plenty of fluids, even if you are unable to eat. - If you have continued nausea, consider using medications such as Pepcid or Xantac daily. You may also use Maalox or Mylanta as needed for symptoms - If you have continued nausea and are unable to stay hydrated, if you have any lightheadedness, confusion, low blood sugars, falls, or any other medical emergency seek immediate medical care. - Make an appointment to follow up with your regular doctor within the next 2-3 days, especially if your symptoms continue.
[2018-10-16 19:41] LABS: ALBUMIN 3.6 g/dl (3.4-5.0); BILIRUBIN,TOTAL 0.4 mg/dL (0.2-1); CALCIUM 8.7 mg/dL (8.5-10.1); CREATININE 0.9 mg/dL (0.55-1.3); POTASSIUM 3.4 mmol/L (3.5-5.1); TOT PROT 6.5 g/dl (6.4-8.2)
[2018-10-16 19:58] LABS: URINE APPEARANCE CLEAR; URINE BILIRUBIN NEGATIVE (NEGATIVE); URINE COLOR YELLOW; URINE GLUCOSE (UA) NEGATIVE (NEGATIVE); URINE KETONE 1+ (NEGATIVE); URINE LEUK ESTERASE NEGATIVE (NEGATIVE); URINE NITRITE NEGATIVE (NEGATIVE); URINE PROTEIN TRACE (NEGATIVE); URINE UROBILINOGEN 0.2 mg/dL (0.2-1.0)
[2018-10-16] MEDS ORDERED: FAMOTIDINE 20 MG/50 ML IVPB 20 MG/50 ML MG IVPB ONE (20:54)
[2018-10-16] MEDS ORDERED: MAGNESIUM SULF 50% (8.12 MEQ/2 ML-1 GM VIAL) IVPB ONE (21:01)
[2018-10-16] MEDS ORDERED: POTASSIUM CHLORIDE TABS 20 MEQ TABLET.ER (FP) PO ONE (21:01)
[2018-10-16] MEDS ORDERED: POTASSIUM CHLORIDE TABS 10 MEQ TABLET.ER (FP) ONE (21:09)
[2018-10-16] MEDS ORDERED: MAGNESIUM 1GM/D5W - 2 GM/200 ML IVPB IVPB ONE (21:10)
[2018-10-16 21:20] VITALS: BP 145/83; PULSE 89
--- NOTE | 2018-10-16 21:34 | PDOC ---
Documentation entered by Axel Brannon SCRIBE, acting as scribe for Viri Nichols MD. Viri Nichols MD: This documentation has been prepared by the Clovis gongora Daniel, SCRIBE, under my direction and personally reviewed by me in its entirety. I confirm that the documentation accurately reflects all work, treatment, procedures, and medical decision making performed by me. Attending Attestation - Resident Resident Name: MashaViridiana - ED Attending Attestation I have performed the following: I have examined & evaluated the patient, The case was reviewed & discussed with the resident, I agree w/resident's findings & plan - HPI HPI: 10/16/18 19:25 The patient is a year old with a past medical history of IBS, seizure disorder, GERD, and fibromyalgia brought in today by EMS from [facility] for evaluation of altered mental status. The patient is unable to report why she came in today but states that she feels nauseous and dizzy. As per EMS NH found her with sugar in the 50s and gave her glucagon. Patient states that she was recently discharged from [facility] to [facility] after being admitted for a hematoma on the back of her head. She also reports vomiting the past 2 days. Patient denies headache. Denies fever, chills. Denies chest pain, shortness of breath. Denies diarrhea, abdominal pain. Allergies: NKA - Physicial Exam PE: 10/16/18 20:55 GENERAL: Awake, alert, and fully oriented, in no acute distress HEAD: No signs of trauma EYES: PERRLA, EOMI, sclera anicteric, conjunctiva clear ENT: Auricles normal inspection, hearing grossly normal, nares patent, oropharynx clear without exudates. Moist mucosa NECK: Normal ROM, supple, no lymphadenopathy, JVD, or masses BACK: +kyphosis LUNGS: Breath sounds equal, clear to auscultation bilaterally. No wheezes, and no crackles HEART: Regular rate and rhythm, normal S1 and S2, no murmurs, rubs or gallops ABDOMEN: Soft, nontender, normoactive bowel sounds. No guarding, no rebound. No masses EXTREMITIES: Normal range of motion, no edema. No clubbing or cyanosis. No cords, erythema, or tenderness NEUROLOGICAL: Cranial nerves II through XII grossly intact. Normal speech, normal gait SKIN: Warm, Dry, normal turgor, no rashes or lesions noted. - Medical Decision Making 10/16/18 21:33 Pt comes with dehydration and cachexia and low glc. She is A+Ox3 and she is more alert after hydration and once her brother visits her in the ER. 10/16/18 21:40 Pt has ketones in her urine but no UTI 10/16/18 23:41 Patient Name: ALVIN FORTE THIS IS A PRELIMINARY REPORT FROM [facility] EXAM: CT Head wo IMAGES: 131 EXAM DATE AND TIME: 2018-10-16 22:31:06 HISTORY: 78 year old woman: Persistent nausea and vomiting. COMPARISON: None TECHNIQUE: Non-contrast axial images were obtained. Coronal and sagittal images were also generated. FINDINGS: The sulci and ventricles are mildly prominent suggesting mild age related involutional changes. There are no intracranial hemorrhages, extra-axial fluid collections or evidence of an intra-axial mass lesion. Benign basal ganglia calcifications are noted within the globus pallidus nuclei , bilaterally. There are multiple, scattered, deep white matter chronic microvascular ischemic changes in the frontal and parietal lobes, bilaterally. There is a 8 mm diameter low density lesion in the left external capsule just lateral to the posterior putamen, which may represent an acute nonhemorrhagic ischemic lesion. An MRI scan may help in further evaluating this lesion, if clinically indicated. Orbital and petrous structures, cerebellopontine angles, and posterior fossa appear unremarkable. The paranasal and mastoid sinuses are clear. IMPRESSION: 8 mm diameter low density lesion in the left external capsule just lateral to the posterior putamen, which may represent an acute nonhemorrhagic ischemic lesion. An MRI scan may help in further evaluating this lesion, if clinically indicated. Multiple, scattered, deep cerebral white matter chronic microvascular ischemic changes. Mild age related involutional changes. The study is otherwise unremarkable. No intracranial hemorrhages, extra-axial fluid collections or intra-axial mass lesion. 10/17/18 00:48 ALVIN FORTE The prior CT scans from 06/07/2018 and 05/17/2014 and submitted for comparison. The 8 mm low density lesion seen in the left external capsule was also present on the prior examinations of 06/07/2018 and the earlier examination of 05/17/2014, possibly representing a chronic ischemic lesion, or benign neuroepithelial cyst. THIS DOCUMENT HAS BEEN ELECTRONICALLY SIGNED 10/17/18 01:32 Pt had to go to the bathroom and she was in the holding area, so she pulled her IV and took off her gown and she was attempting to get out of bed. . SHe is stable to go back to the [facility].
[2018-10-16] MEDS ORDERED: METOCLOPRAMIDE HCL INJECTION 10 MG/2 ML VIAL IVPUSH ONE (23:15)
[2018-10-16] MEDS ORDERED: ACETAMINOPHEN 1000 MG/100 ML VIAL (NON FORMULARY) IVPB ONE (23:15)
[2018-10-17] MEDS ORDERED: ACETAMINOPHEN INJECTION 100 ML IVPB ONE (00:39)
[2018-10-17] MEDS ORDERED: METOCLOPRAMIDE HCL INJECTION 10 MG/2 ML VIAL ONE (00:39)
--- NOTE | 2018-10-17 11:20 | EKG ---
Test Reason : Blood Pressure : / mmHG Vent. Rate : 109 BPM Atrial Rate : 109 BPM P-R Int : 172 ms QRS Dur : 086 ms QT Int : 338 ms P-R-T Axes : 068 021 047 degrees QTc Int : 455 ms SINUS TACHYCARDIA SEPTAL INFARCT , AGE UNDETERMINED ABNORMAL ECG WHEN COMPARED WITH ECG OF 06-JUN-2018 08:46, SEPTAL INFARCT IS NOW PRESENT T WAVE AMPLITUDE HAS DECREASED IN ANTERIOR LEADS Confirmed by RUT CATES, RODRIGO ([id number]) on 10/17/2018 11:20:17 AM Referred By: Confirmed By:RODRIGO BETTENCOURT MD
== END 2018-10-17 01:30 ==
LOC: JER 18:15
PROC: 3E033GC Introduction of Other Therapeutic Substance into Peripheral Vein, Percutaneous Approach (ICD-10-PCS; principal; 2018-10-16)
PROC: 3E033GC Introduction of Other Therapeutic Substance into Peripheral Vein, Percutaneous Approach (ICD-10-PCS; 2018-10-16)
PROC: 3E033NZ Introduction of Analgesics, Hypnotics, Sedatives into Peripheral Vein, Percutaneous Approach (ICD-10-PCS; 2018-10-16)
DX: E86.0 Dehydration (principal); G40.909 Epilepsy, unspecified, not intractable, without status epilepticus; M19.90 Unspecified osteoarthritis, unspecified site; M79.7 Fibromyalgia
CPT/HCPCS: 36415; 70450-TC; 80053; 81003; 82962; 85025; 87086; 93005; 93010; 96365; 96375; 99285-25; J0131

== ENCOUNTER 2021-09-10 13:14 | Observation (INO) | payer OTHER, BC ==
[2021-09-10 15:40] LABS: EPI CELLS 8 /uL (0-25.1); HYALINE CASTS 1 /uL (0-3.1); URINE APPEARANCE CLEAR; URINE BACTERIA 44 /uL (0-1359); URINE BILIRUBIN NEGATIVE (NEGATIVE); URINE COLOR YELLOW; URINE GLUCOSE (UA) NEGATIVE (NEGATIVE); URINE KETONE NEGATIVE (NEGATIVE); URINE LEUK ESTERASE NEGATIVE (NEGATIVE); URINE NITRITE NEGATIVE (NEGATIVE); URINE PROTEIN TRACE (NEGATIVE); URINE RBC 202 /uL (0-23.9); URINE UROBILINOGEN 0.2 mg/dL (0.2-1.0); URINE WBC 7 /uL (0-25.8)
[2021-09-10 17:00] LABS: BASO % 0.4 % (0-2.0); EOS % 0.3 % (0-4.5); HEMATOCRIT 38.6 % (32.4-45.2); HEMOGLOBIN 12.8 GM/dL (10.7-15.3); LYMPH % 20.2 % (8-40); MCH 30.9 pg (25.7-33.7); MCHC 33.2 g/dl (32.0-36.0); MEAN PLT VOLUME 8.8 fl (7.5-11.1); MONO % 5.2 % (3.8-10.2); NEUT % 73.9 % (42.8-82.8); PLATELET COUNT 168 10^3/uL (134-434); RBC 4.15 M/mm3 (3.60-5.2); RDW 13.5 % (11.6-15.6); WHITE BLOOD COUNT 5.3 K/mm3 (4.0-10.0)
[2021-09-10 17:32] LABS: BLOOD UREA NITROGEN 10.6 mg/dL (7-18); CALCIUM 8.8 mg/dL (8.5-10.1)
[2021-09-10 17:34] LABS: ALBUMIN 3.7 g/dl (3.4-5.0)
[2021-09-10 17:36] LABS: CREATININE 0.7 mg/dL (0.55-1.3)
[2021-09-10 17:37] LABS: BILIRUBIN,TOTAL 0.4 mg/dL (0.2-1); TOT PROT 6.8 g/dl (6.4-8.2)
[2021-09-10 20:12] LABS: MAGNESIUM 2.3 mg/dL (1.8-2.4)
[2021-09-10 20:17] LABS: PHOSPHOROUS 3.3 mg/dL (2.5-4.9)
[2021-09-10] MEDS ORDERED: SODIUM CHLORIDE 1,000 ML IV SCH (21:15)
[2021-09-10] MEDS: PHENYTOIN NA EXTENDED 100 MG CAPSULE (FP) PO SCH ×2 (22:45→22:53)
[2021-09-10] MEDS: ACETAMINOPHEN 325 MG TABLET (FP) PO PRN (22:53)
[2021-09-10] MEDS: DULoxetine HCL 30 MG CAPSULE.DR PO SCH (22:53)
[2021-09-11] MEDS: PHENYTOIN 50 MG TAB.CHEW PO SCH ×2 (00:48→05:21)
[2021-09-11 01:36] VITALS: BMI 18.3
[2021-09-11] MEDS ORDERED: PHENYTOIN SODIUM 100 MG/2 ML VIAL IVPB SCH (07:30)
[2021-09-11] MEDS: SODIUM CHLORIDE IVPB SCH ×2 (08:00→18:21)
[2021-09-11] MEDS: PHENYTOIN SODIUM IVPB SCH ×2 (08:00→18:21)
[2021-09-11 08:10] LABS: BASO % 0.7 % (0-2.0); EOS % 2.8 % (0-4.5); HEMATOCRIT 34.8 % (32.4-45.2); HEMOGLOBIN 11.6 GM/dL (10.7-15.3); LYMPH % 32.6 % (8-40); MCHC 33.3 g/dl (32.0-36.0); MEAN CELL VOLUME 93.2 fl (80-96); MEAN PLT VOLUME 9.7 fl (7.5-11.1); MONO % 7.6 % (3.8-10.2); NEUT % 56.3 % (42.8-82.8); PLATELET COUNT 157 10^3/uL (134-434); RBC 3.73 M/mm3 (3.60-5.2); RDW 13.4 % (11.6-15.6); WHITE BLOOD COUNT 4.5 K/mm3 (4.0-10.0)
[2021-09-11 08:20] LABS: ALBUMIN 3.2 g/dl (3.4-5.0); BLOOD UREA NITROGEN 15.1 mg/dL (7-18); CALCIUM 8.2 mg/dL (8.5-10.1); MAGNESIUM 2.3 mg/dL (1.8-2.4)
[2021-09-11 08:22] LABS: CREATININE 0.7 mg/dL (0.55-1.3); PHOSPHOROUS 3.3 mg/dL (2.5-4.9)
[2021-09-11 08:25] LABS: BILIRUBIN,TOTAL 0.3 mg/dL (0.2-1); TOT PROT 6.1 g/dl (6.4-8.2)
[2021-09-11] MEDS ORDERED: SODIUM CHLORIDE IVPB SCH ×2 (08:30→09:00)
[2021-09-11] MEDS ORDERED: PHENYTOIN SODIUM IVPB SCH ×2 (08:30→09:00)
[2021-09-11] MEDS ORDERED: ONDANSETRON *ODT* 4 MG TABLET SL ONE (08:30)
[2021-09-11] MEDS ORDERED: ENOXAPARIN NA (PORCINE) 40 MG/0.4 ML DISP.SYRIN SQ SCH (10:00)
[2021-09-11] MEDS: DULoxetine HCL 30 MG CAPSULE.DR PO SCH (10:42)
[2021-09-11] MEDS: ACETAMINOPHEN 325 MG TABLET (FP) PO PRN ×2 (10:42→21:54)
[2021-09-11] MEDS: ENOXAPARIN NA (PORCINE) 40 MG/0.4 ML DISP.SYRIN SQ SCH (10:42)
[2021-09-11] MEDS ORDERED: LORazepam 2 MG/ML SDV VIAL IVPUSH PRN (19:06)
[2021-09-11] MEDS ORDERED: SODIUM CHLORIDE 1,000 ML IV SCH (19:15)
[2021-09-11] MEDS: DILANTIN 100 MG PO SCH (21:54)
[2021-09-11] MEDS ORDERED: PHENYTOIN NA EXTENDED 100 MG CAPSULE (FP) PO SCH (22:00)
[2021-09-12] MEDS: ACETAMINOPHEN 325 MG TABLET (FP) PO PRN ×2 (08:51→21:37)
[2021-09-12] MEDS: DILANTIN 100 MG PO SCH ×3 (08:51→21:37)
[2021-09-12] MEDS: ENOXAPARIN NA (PORCINE) 40 MG/0.4 ML DISP.SYRIN SQ SCH (09:22)
[2021-09-12] MEDS: DULoxetine HCL 30 MG CAPSULE.DR PO SCH (09:22)
[2021-09-12] MEDS: amLODIPine BESYLATE 5 MG TABLET (FP) PO SCH (09:22)
[2021-09-12 09:31] LABS: CALCIUM 8.6 mg/dL (8.5-10.1)
[2021-09-12 09:33] LABS: BLOOD UREA NITROGEN 16.2 mg/dL (7-18)
[2021-09-12 09:35] LABS: CREATININE 0.7 mg/dL (0.55-1.3)
[2021-09-13] MEDS: DILANTIN 100 MG PO SCH (08:42)
[2021-09-13] MEDS: ENOXAPARIN NA (PORCINE) 40 MG/0.4 ML DISP.SYRIN SQ SCH (09:59)
[2021-09-13] MEDS: DULoxetine HCL 30 MG CAPSULE.DR PO SCH (10:00)
[2021-09-13] MEDS: amLODIPine BESYLATE 5 MG TABLET (FP) PO SCH (10:00)
[2021-09-13] MEDS: PHENYTOIN NA PO SCH (17:19)
[2021-09-14] MEDS: PHENYTOIN NA PO SCH ×3 (09:00→17:23)
[2021-09-14] MEDS: DULoxetine HCL 30 MG CAPSULE.DR PO SCH (09:48)
[2021-09-14] MEDS: amLODIPine BESYLATE 5 MG TABLET (FP) PO SCH (09:48)
[2021-09-14] MEDS: ENOXAPARIN NA (PORCINE) 40 MG/0.4 ML DISP.SYRIN SQ SCH (09:48)
[2021-09-15 07:59] LABS: EOS % 5.1 % (0-4.5); HEMATOCRIT 34.6 % (32.4-45.2); HEMOGLOBIN 11.6 GM/dL (10.7-15.3); LYMPH % 31.5 % (8-40); MCH 31.3 pg (25.7-33.7); MCHC 33.4 g/dl (32.0-36.0); MEAN CELL VOLUME 93.9 fl (80-96); MEAN PLT VOLUME 9.5 fl (7.5-11.1); NEUT % 53.4 % (42.8-82.8); PLATELET COUNT 154 10^3/uL (134-434); RBC 3.69 M/mm3 (3.60-5.2); RDW 13.8 % (11.6-15.6); WHITE BLOOD COUNT 3.7 K/mm3 (4.0-10.0)
[2021-09-15 08:16] LABS: BILIRUBIN,TOTAL 0.3 mg/dL (0.2-1)
[2021-09-15 08:18] LABS: BLOOD UREA NITROGEN 25.8 mg/dL (7-18); CALCIUM 8.4 mg/dL (8.5-10.1)
[2021-09-15 08:19] LABS: ALBUMIN 3.1 g/dl (3.4-5.0); CREATININE 0.7 mg/dL (0.55-1.3); TOT PROT 5.7 g/dl (6.4-8.2)
[2021-09-15] MEDS: PHENYTOIN NA PO SCH ×3 (08:27→17:36)
[2021-09-15] MEDS: DULoxetine HCL 30 MG CAPSULE.DR PO SCH (09:19)
[2021-09-15] MEDS: ENOXAPARIN NA (PORCINE) 40 MG/0.4 ML DISP.SYRIN SQ SCH (09:19)
[2021-09-15] MEDS: amLODIPine BESYLATE 5 MG TABLET (FP) PO SCH (09:19)
[2021-09-16 09:07] VITALS: BP 142/92; PULSE 78; TEMP 98
[2021-09-16] MEDS: DULoxetine HCL 30 MG CAPSULE.DR PO SCH (09:16)
[2021-09-16] MEDS: ENOXAPARIN NA (PORCINE) 40 MG/0.4 ML DISP.SYRIN SQ SCH (09:16)
[2021-09-16] MEDS: amLODIPine BESYLATE 5 MG TABLET (FP) PO SCH (09:16)
[2021-09-16] MEDS: PHENYTOIN NA PO SCH ×2 (09:16→12:38)
== END 2021-09-16 14:57 | disposition home health service (06) ==
LOC: JER 13:14 → JERBED 19:43 → J4S 21:46
PROVIDERS: ADMIT Hospitalist
PROC: 3E023GC Introduction of Other Therapeutic Substance into Muscle, Percutaneous Approach (ICD-10-PCS; principal; 2021-09-10)
DX: G40.A09 Absence epileptic syndrome, not intractable, without status epilepticus (principal); I10 Essential (primary) hypertension; K58.9 Irritable bowel syndrome, unspecified; D32.9 Benign neoplasm of meninges, unspecified; M79.7 Fibromyalgia; M81.0 Age-related osteoporosis without current pathological fracture; Z87.81 Personal history of (healed) traumatic fracture; Z29.8 Encounter for other specified prophylactic measures
CPT/HCPCS: 36415; 71045-TC-FY; 80048; 80053; 80156; 80185; 80186; 81003; 82550; 83615; 83735; 84100; 84146; 84443; 85025; 87086; 95816; 96372; 97116-GP; 97161-GP; 99285-25; C9803-CS; G0378; U0003; U0005

== ENCOUNTER 2022-09-07 16:32 | Emergency (ER) | payer OTHER, BC ==
[2022-09-07 16:56] VITALS: BP 140/93; PULSE 77; RESP 20; TEMP 97.7; BMI 17.6
== END 2022-09-07 21:26 | disposition home or self-care (01) ==
LOC: JER 16:32
DX: K62.3 Rectal prolapse (principal); K62.89 Other specified diseases of anus and rectum
CPT/HCPCS: 99282-25

== ENCOUNTER 2023-10-09 09:34 | Inpatient (IN) | payer OTHER, BC ==
[2023-10-09] MEDS ORDERED: ACETAMINOPHEN INJECTION 100 ML IVPB ONE (10:16)
[2023-10-09] MEDS: ACETAMINOPHEN 1000 MG/100 ML BAG IVPB ONE (10:37)
[2023-10-09 10:51] LABS: BASO % 0.8 % (0-2.0); EOS % 0.2 % (0-4.5); HEMATOCRIT 37.5 % (32.4-45.2); HEMOGLOBIN 12.6 GM/dL (10.7-15.3); LYMPH % 20.3 % (8-40); MCH 31.4 pg (25.7-33.7); MCHC 33.6 g/dl (32.0-36.0); MEAN CELL VOLUME 93.6 fl (80-96); MEAN PLT VOLUME 8.6 fl (7.5-11.1); MONO % 7.3 % (3.8-10.2); NEUT % 71.4 % (42.8-82.8); PLATELET COUNT 143 10^3/uL (134-434); RDW 13.9 % (11.6-15.6); WHITE BLOOD COUNT 5.9 K/mm3 (4.0-10.0)
[2023-10-09 10:58] LABS: INR 1.05 (0.83-1.09); PROTHROMBIN TIME (PATIENT) 12.1 SEC (9.7-13.0)
[2023-10-09 11:10] LABS: POTASSIUM 5.5 mmol/L (3.5-5.1)
[2023-10-09 11:12] LABS: ALBUMIN 3.5 g/dl (3.4-5.0); BLOOD UREA NITROGEN 16.1 mg/dL (7-18); CALCIUM 8.3 mg/dL (8.5-10.1)
[2023-10-09 11:15] LABS: CREATININE 0.7 mg/dL (0.55-1.3)
[2023-10-09 11:17] LABS: BILIRUBIN,TOTAL 0.7 mg/dL (0.2-1); TOT PROT 7.5 g/dl (6.4-8.2)
[2023-10-09 14:05] LABS: CALCIUM 8.3 mg/dL (8.5-10.1)
[2023-10-09 14:06] LABS: BLOOD UREA NITROGEN 16.6 mg/dL (7-18)
[2023-10-09 14:09] LABS: CREATININE 0.7 mg/dL (0.55-1.3)
[2023-10-09 14:14] LABS: EPI CELLS 2 /uL (0-25.1); HYALINE CASTS 2 /uL (0-3.1); PH,URINE 7.5 (5.0-8.0); URINE APPEARANCE CLOUDY; URINE BACTERIA 8024 /uL (0-1359); URINE BILIRUBIN NEGATIVE (NEGATIVE); URINE COLOR YELLOW; URINE GLUCOSE (UA) NEGATIVE (NEGATIVE); URINE KETONE NEGATIVE (NEGATIVE); URINE LEUK ESTERASE 1+ (NEGATIVE); URINE NITRITE POSITIVE (NEGATIVE); URINE PROTEIN 1+ (NEGATIVE); URINE RBC 12 /uL (0-23.9); URINE WBC 308 /uL (0-25.8)
[2023-10-09] MEDS ORDERED: LIDOCAINE 4% PATCH TP ONE (17:56)
[2023-10-09] MEDS ORDERED: CEFTRIAXONE 1 GM/50 ML BAG ONE (17:57)
[2023-10-09] MEDS: LIDOCAINE 5% TOPICAL PATCH TP SCH (18:08)
[2023-10-09] MEDS: ACETAMINOPHEN 500 MG TABLET (FP) PO PRN (21:35)
[2023-10-09] MEDS: LIDOCAINE PATCH REMOVAL MC SCH (21:36)
[2023-10-09] MEDS: PHENYTOIN NA EXTENDED 100 MG CAPSULE (FP) PO SCH (21:36)
[2023-10-10] MEDS: DULoxetine HCL 30 MG CAPSULE.DR PO SCH (10:17)
[2023-10-10] MEDS: amLODIPine BESYLATE 5 MG TABLET (FP) PO SCH (10:18)
[2023-10-10] MEDS: CEFTRIAXONE 1 GM in DEXTROSE 5%-WATER - 50 ML IVPB SCH (10:18)
[2023-10-10] MEDS: traMADol HCL 50 MG TABLET PO PRN (18:05)
[2023-10-11] MEDS: PHENYTOIN 50 MG TAB.CHEW PO SCH (06:04)
[2023-10-12 07:59] LABS: POTASSIUM 4.2 mmol/L (3.5-5.1)
[2023-10-12 08:03] LABS: ALBUMIN 2.9 g/dl (3.4-5.0); CALCIUM 8.2 mg/dL (8.5-10.1); MAGNESIUM 2.2 mg/dL (1.8-2.4)
[2023-10-12 08:04] LABS: BLOOD UREA NITROGEN 21.7 mg/dL (7-18)
[2023-10-12 08:06] LABS: PHOSPHOROUS 3.8 mg/dL (2.5-4.9)
[2023-10-12 08:07] LABS: CREATININE 0.7 mg/dL (0.55-1.3)
[2023-10-12 08:08] LABS: BILIRUBIN,TOTAL 0.3 mg/dL (0.2-1)
[2023-10-12] MEDS: BACITRACIN ZINC 15 GM TUBE TOPICAL OINTMENT TP SCH (11:17)
[2023-10-12] MEDS: PHENYTOIN 50 MG TAB.CHEW PO ONE (11:18)
[2023-10-12] MEDS: PHENYTOIN NA EXTENDED 100 MG CAPSULE (FP) PO SCH (21:26)
[2023-10-13] MEDS: LEVOTHYROXINE NA 25 MCG TABLET (FP) PO SCH (06:34)
[2023-10-13] MEDS: CHOLECALCIFEROL (VIT D3) 1,000 UNIT (25 MCG) TABLET PO SCH (10:37)
[2023-10-13 20:07] VITALS: BMI 14.2
[2023-10-14] MEDS: COSYNTROPIN 0.25 MG VIAL IVPUSH ONE (05:43)
[2023-10-14 07:41] LABS: POTASSIUM 5.1 mmol/L (3.5-5.1)
[2023-10-14 07:46] LABS: CALCIUM 8.4 mg/dL (8.5-10.1)
[2023-10-14 07:47] LABS: BLOOD UREA NITROGEN 32.2 mg/dL (7-18)
[2023-10-14 07:50] LABS: CREATININE 0.7 mg/dL (0.55-1.3)
[2023-10-14] MEDS: amLODIPine BESYLATE 2.5 MG TABLET (FP) PO SCH (09:44)
[2023-10-14 11:22] LABS: MAGNESIUM 2.4 mg/dL (1.8-2.4)
[2023-10-14 11:27] LABS: PHOSPHOROUS 4.9 mg/dL (2.5-4.9)
[2023-10-14 19:20] VITALS: BP 112/72; PULSE 100; RESP 20; TEMP 98
== END 2023-10-14 19:21 | DRG 551 ==
LOC: JER 09:34 → JERBED 14:30 → OBSVTOIN 16:55 → J4W 19:34
PROVIDERS: ADMIT Internal Medicine; ATTEND Internal Medicine
DX: M54.9 Dorsalgia, unspecified (principal); E43 Unspecified severe protein-calorie malnutrition; Z68.1 Body mass index [BMI] 19.9 or less, adult; M48.56XA Collapsed vertebra, not elsewhere classified, lumbar region, initial encounter for fracture; M79.7 Fibromyalgia; M81.0 Age-related osteoporosis without current pathological fracture; E03.9 Hypothyroidism, unspecified; I95.1 Orthostatic hypotension; K62.3 Rectal prolapse; S50.312A Abrasion of left elbow, initial encounter; W19.XXXA Unspecified fall, initial encounter; Y93.89 Activity, other specified; Y92.009 Unspecified place in unspecified non-institutional (private) residence as the place of occurrence of the external cause; Y99.8 Other external cause status
CPT/HCPCS: 36415; 70450-TC; 71045-TC-FY; 72125-TC; 72170-TC-FY; 80048; 80053; 80185; 81003; 82533; 83605; 83735; 84100; 84439; 84443; 84484; 85025; 85610; 87086; 87186; 93005; 93010; 97116-GP; 99285-25; G0378; J0131; J0834

== ENCOUNTER 2024-02-02 10:15 | Emergency (ER) | payer OTHER, BC ==
[2024-02-02 10:47] VITALS: RESP 18; TEMP 98.1; BMI 15.4
[2024-02-02 17:44] VITALS: BP 125/77; PULSE 83
== END 2024-02-02 17:45 | disposition home or self-care (01) ==
LOC: JER 10:15
DX: K62.3 Rectal prolapse (principal); K59.00 Constipation, unspecified
CPT/HCPCS: 99283-25